=== PATIENT | female | born 1985 | race Asian ===

== ENCOUNTER 2023-04-16 22:58 | Inpatient (IN) ==
[2023-04-16] MEDS ORDERED: oxyCODONE/ACETAMINOPHEN 5mg/325mg TAB PO PRN (23:10)
[2023-04-16] MEDS ORDERED: BUTALBITAL/ACETAMIN/CAFFEINE TAB PO PRN (23:42)
--- NOTE | 2023-04-16 23:46 | History & Physical Report ---
Date of Service April 16, 2023 Assessment & Plan (1) Gestational hypertension: Plan: Patient is a 37-year-old -0-2-0 at 37 weeks and 1 day gestation who was diagnosed with gestational hypertension without proteinuria at the office and was scheduled for induction of labor tomorrow. She presented today with severe headache not responding to Tylenol and elevated blood pressures within severe range, Neurologic exam normal, Blood work including liver enzymes, creatinine and platelets were normal tonight P/C ratio of urine in office was within normal limits yesterday, Discussed the findings with gestational hypertension with superimposed preeclampsia with severe features, recommended her to be admitted today and induction of labor and IV magnesium for seizure prophylaxis and antihypertensives to control blood pressures, Patient is questioning about IV magnesium and she is not sure she will take it or not, she wants time for the Fiorecet she took for Headache to work, I still recommended IV magnesium for seizure prophylaxis due to the findings, patient wants to think about it and then decide, She also wants to hold for vaginal exam and placement of Cervidil for cervical ripening until she feels better, All questions were answered. (2) Gestational diabetes mellitus (GDM): (3) Headache in : History of Present Illness Chief Complaint: Headaches Primary Care Provider: NO PCP Patient is a 37-year-old at 37 weeks of gestation who was originally scheduled for induction of labor on April 28 for gestational hypertension. Her blood work and urine PC ratio were normal yesterday in the office. She started to have neck pain radiating to her ears and temples tonight. She in itially thought it was tension headache that she had before but it got worse. She took 1000 mg of Tylenol at 9 PM and it did not help. She also had blurry vision earlier and it is better now. She denies numbness or tingling, weakness, abdominal, epigastric or right upper quadrant pain, nausea vomiting, contractions, leakage of fluid, vaginal bleeding. She reports good movements. Her has been complicated by, 1. Gestational hypertension without proteinuria, on labetalol 100 mg twice daily, 2. Gestational diabetes, 3. Advanced maternal age, Allergies Allergy/AdvReac Type Severity Reaction Status Date / Time No Known Allergies Allergy Verified 04/08/23 20:59 Home Medications Medication Instructions Recorded Confirmed Type ferrous sulfate 325 mg (65 mg 325 mg PO DAILY 04/03/23 04/08/23 History iron) tablet (iron) vit no.95-ferrous 1 tab PO DAILY 04/03/23 04/08/23 History fumarate 28 mg-folic acid 800 mcg tablet () cetirizine 10 mg tablet (Zyrtec) 10 mg PO DAILY 04/08/23 04/08/23 History Patient History Medical History Decreased movement High risk due to assisted reproductive technology in third trimester No significant past medical history Surgical History No significant past surgical history Social History Smoking Status: Never smoker Second Hand Exposure: No; Hx Alcohol Use: No Hx Substance Use: No Preferred Language: Tajik Communication Ability: Effective 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 Beliefs That Will Affect Care: None marital status: Current Living Situation: Spouse Feels Safe at Home: Yes Safety Concerns: Feels Safe At This Time Assistive Devices: None Review of Systems as per Subjective / HPI Physical Exam Constitutional: WD/WN, vitals as above well developed and well nourished Gastrointestinal (Abdomen): normal bowel sounds, soft, nontender, no hepatosplenomegaly Neurologic: patellar DTR's 2+ bilat, sensation intact and PERRL, EOMI, accommodation nl, no face palsy, no dysarthria normal touch/pain/proprioception, CN's II-XI intact bilaterally, deep tendon reflexes 2+ bilaterally, plantar reflexes intact bilaterally, normal sensation to monofilament and moves all extremities Genitourinary: OB Exam Monitor Tracing: + external uterine monitor used and + category I Results & Data Vital Signs (Past 12 Hours) Vital Signs Temp Pulse Resp BP 04/16/23 23:39 64 167/83 H 04/16/23 23:36 66 169/77 H 04/16/23 23:33 56 L 164/84 H 04/16/23 23:30 36.4 C L 61 18 185/89 H Vital Signs Temp Pulse Resp BP 04/17/23 00:47 59 L 161/80 H 04/17/23 00:28 61 188/87 H 04/17/23 00:18 55 L 142/63 H 04/17/23 00:12 61 183/89 H 04/17/23 00:02 63 172/83 H 04/16/23 23:57 63 201/100 H 04/16/23 23:39 64 167/83 H 04/16/23 23:36 66 169/77 H 04/16/23 23:33 56 L 164/84 H 04/16/23 23:30 36.4 C L 61 18 185/89 H Laboratory Results Lab Results 04/16/23 04/16/23 Range/Units 23:20 23:20 WBC 8.55 (4.8-10.8) K/ul RBC 4.19 L (4.20-5.40) M/uL Hgb 11.7 L (12.0-16.0) g/dl Hct 36.0 L (37.0-47.0) % MCV 85.9 (80.0-100.0) fL MCH 27.9 (25.0-34.0) pg MCHC 32.5 (32.0-36.0) g/dL RDW Std Deviation 45.1 (36.4-46.3) fL RDW Coeff of Aj 14.6 H (11.5-14.5) % Plt Count 148 (130-400) K/uL MPV 13.5 H (9.4-12.4) fL Immature Gran % (Auto) 0.4 % Neut % (Auto) 61.4 % Lymph % (Auto) 29.6 % [place] % (Auto) 7.1 % Eos % (Auto) 1.1 % Baso % (Auto) 0.4 % Neut # (Auto) 5.26 (1.40-6.50) K/uL Lymph # (Auto) 2.53 (1.20-3.40) K/uL [place] # (Auto) 0.61 H (0.11-0.59) K/uL Eos # (Auto) 0.09 (0.00-0.50) K/uL Baso # (Auto) 0.03 (0.00-0.20) K/uL Immature Gran # (Auto) 0.03 (0.01-0.20) K/uL Sodium 134 L (136-145) mmol/L Potassium 4.3 (3.5-5.1) mmol/L Chloride 108 H (98-107) mmol/L Carbon Dioxide 18 L (21-32) mmol/L Anion Gap 8 (3-11) BUN 12 (6-23) mg/dl Creatinine 0.65 (0.6-1.2) mg/dl Est Cr Clr Drug Dosing 125.0 ml/min Est GFR ( Amer) 133.3 ml/min Est GFR (Non-Af Amer) 115.0 ml/min BUN/Creatinine Ratio 18.5 (10-20) Glucose 90 (70-99(Fasting)) mg/dl Calcium 9.0 (8.6-10.3) mg/dl Total Bilirubin 0.2 (0.2-1.0) mg/dl AST 23 (13-39) U/L ALT 12 (7-52) U/L Alkaline Phosphatase 101 (34-104) U/L Total Protein 6.2 (6.0-8.3) gm/dl Albumin 3.2 L (3.4-5.0) gm/dl Globulin 3.0 (2.5-4.0) gm/dl Albumin/Globulin Ratio 1.1 (0.9-2)
[2023-04-16 23:55] LABS: Albumin Globulin Ratio 1.1 (0.9-2); Albumin Level 3.2 gm/dl (3.4-5.0); BUN Creatinine Ratio 18.5 (10-20); Bilirubin,Total 0.2 mg/dl (0.2-1.0); Est GFR (African American) 133.3 ml/min; Potassium 4.3 mmol/L (3.5-5.1); Total Protein 6.2 gm/dl (6.0-8.3)
[2023-04-17 00:01] LABS: Basophils # (auto) 0.03 K/uL (0.00-0.20); Basophils % (auto) 0.4 %; Eosinophils # (auto) 0.09 K/uL (0.00-0.50); Eosinophils % (auto) 1.1 %; Hemoglobin 11.7 g/dl (12.0-16.0); Immature Granulocytes # (auto) 0.03 K/uL (0.01-0.20); Immature Granulocytes % (auto) 0.4 %; Lymphocytes # (auto) 2.53 K/uL (1.20-3.40); Lymphocytes % (auto) 29.6 %; Mean Corpuscular Hemoglobin 27.9 pg (25.0-34.0); Mean Corpuscular Hgb Conc 32.5 g/dL (32.0-36.0); Mean Corpuscular Volume 85.9 fL (80.0-100.0); Mean Platelet Volume 13.5 fL (9.4-12.4); Monocytes # (auto) 0.61 K/uL (0.11-0.59); Monocytes % (auto) 7.1 %; Neutrophils # (auto) 5.26 K/uL (1.40-6.50); Neutrophils % (auto) 61.4 %; Platelet Count 148 K/uL (130-400); RDW Coefficient of Variation 14.6 % (11.5-14.5); RDW Standard Deviation 45.1 fL (36.4-46.3); Red Blood Count 4.19 M/uL (4.20-5.40); White Blood Count 8.55 K/ul (4.8-10.8)
[2023-04-17] MEDS ORDERED: LIDOCAINE 1% LOCAL 20 ML VIAL INFIL PRN (00:05)
[2023-04-17] MEDS ORDERED: OXYTOCIN 30 UNITS/500 ML BAG IV PRN ×3 (00:05→21:07)
[2023-04-17] MEDS ORDERED: DINOPROSTONE 10 MG INSERT PV ONE (00:05)
[2023-04-17] MEDS ORDERED: NIFEdipine 10 MG CAP PO STA (00:05)
[2023-04-17] MEDS ORDERED: MAG SULFATE 4GM BOLUS FROM BAG IV ONE (00:07)
[2023-04-17] MEDS ORDERED: LABETALOL HCL IV 5 MG/ML 20ML IV STA (00:30)
[2023-04-17] MEDS ORDERED: LABETALOL HCL IV 5 MG/ML 20ML IV PRN (01:20)
[2023-04-17] MEDS ORDERED: hydrALAZINE HCL 20 MG/ML VIAL IV PRN ×2 (01:22→01:37)
[2023-04-17] MEDS: LACTATED RINGER'S 1,000 ML IV PRN ×3 (01:25→16:05)
--- NOTE | 2023-04-17 01:27 | Obstetrical Progress Note ---
Date of Service April 17, 2023 Assessment & Plan Admission and Anticipated Discharge Date Admission Date: April 17, 2023 Subjective Patient is reevaluated. She feels better since she came. She agrees with IV magnesium and Cervidil now. VE; cervix 1 cm/ thick/ posterior, head at -1, cervidil is placed FHR categ I Continue to monitor closely. Repeat Labs in am All questions were answered. Results & Data Vital Signs (Past 12 Hours) Vital Signs Temp Pulse Resp BP 04/17/23 01:09 58 L 158/83 H 04/17/23 01:09 58 L 158/83 H 04/17/23 00:57 57 L 171/85 H 04/17/23 00:47 59 L 161/80 H 04/17/23 00:28 61 188/87 H 04/17/23 00:18 55 L 142/63 H 04/17/23 00:12 61 183/89 H 04/17/23 00:02 63 172/83 H 04/16/23 23:57 63 201/100 H 04/16/23 23:39 64 167/83 H 04/16/23 23:36 66 169/77 H 04/16/23 23:33 56 L 164/84 H 04/16/23 23:30 36.4 C L 61 18 185/89 H
[2023-04-17] MEDS: MAGNESIUM SULFATE / WTR 40 GM/1,000 ML BAG IV SCH ×2 (01:55→20:25)
[2023-04-17 01:56] LABS: Appearance Urine Clear (Clear); Bilirubin Urine Negative (Negative); Blood Urine Negative (Negative); Color Urine Yellow; Glucose Urine UA Negative (Negative); Ketones Urine Negative (Negative); Leukocyte Esterase Urine Negative (Negative); Nitrite Urine Negative (Negative); Protein Urine Negative (Negative); Urobilinogen Urine Negative (Negative); pH Urine 6.5 (4.5-7.5)
[2023-04-17 02:08] LABS: Total Protein Urine Random 10.5 mg/dl (0-11.9)
[2023-04-17 02:13] LABS: Creatinine Urine Random 66.7 mg/dl; Protein Creatinine Ratio Urine 0.2 (0-0.2)
[2023-04-17] MEDS: ACETAMINOPHEN 325 MG TAB PO PRN (06:33)
[2023-04-17] MEDS ORDERED: LABETALOL HCL 200 MG TAB PO SCH ×2 (07:15→09:00)
[2023-04-17] MEDS ORDERED: Nursing to Pharmacy Communication SCH (07:15)
[2023-04-17] MEDS ORDERED: BUTALBITAL/ACETAMIN/CAFFEINE TAB PO STA (08:31)
[2023-04-17] MEDS ORDERED: LIDOCAINE 2% JELLY 5 ML TUBE EXT ONE (08:36)
--- NOTE | 2023-04-17 08:37 | Obstetrical Progress Note ---
Date of Service April 17, 2023 Assessment & Plan Admission and Anticipated Discharge Date Admission Date: April 17, 2023 Subjective Late entry from 08: 40 Patient started to have العلي again around 6 am. She could sleep after she took Fioricet last night but woke up this morning with العلي. It started again from back of neck and radiated to temples like before. She took Tylenol but did not help much. Pain is 6-7/10. She has been feeling ctxs every 4 minutes since 6 am too. They are not as painful, 4-5/10. BP's started to increase after with العلي starting. Took PO Labetalol about half an hour ago. No change in vision/ epig or RUQ pain/ CP/ SOB Plan to repeat the dose of Fioricet insert lee and check her cervix. Vital Signs Temp Pulse Resp BP Pulse Ox 04/17/23 08:15 20 04/17/23 07:15 20 04/17/23 08:28 69 183/103 H 04/17/23 01:09 58 L 158/83 H 04/17/23 08:33 72 97 04/17/23 08:32 70 161/101 H 04/17/23 08:28 72 98 04/17/23 08:27 69 183/103 H 04/17/23 08:23 72 97 04/17/23 08:18 73 98 04/17/23 08:13 71 98 04/17/23 08:08 69 98 04/17/23 08:03 66 97 04/17/23 07:58 66 98 04/17/23 07:56 65 165/92 H 04/17/23 07:55 68 91 04/17/23 07:53 69 96 04/17/23 07:48 64 96 04/17/23 07:49 66 94 04/17/23 07:43 68 97 04/17/23 07:38 70 97 04/17/23 07:33 67 97 04/17/23 07:28 69 97 04/17/23 07:26 61 166/87 H 04/17/23 07:25 65 91 04/17/23 07:23 69 97 04/17/23 07:18 73 97 04/17/23 07:12 69 98 04/17/23 07:07 66 96 04/17/23 07:02 65 97 04/17/23 06:57 68 98 04/17/23 06:56 64 150/94 H 94 04/17/23 06:52 71 98 04/17/23 06:47 71 98 04/17/23 06:00 18 04/17/23 06:00 18 04/17/23 06:42 69 97 04/17/23 06:37 70 98 04/17/23 06:38 69 155/86 H 04/17/23 06:32 66 98 04/17/23 06:27 65 97 04/17/23 06:26 69 168/85 H 04/17/23 06:25 70 91 04/17/23 06:22 64 97 04/17/23 06:17 71 99 04/17/23 06:12 72 99 04/17/23 06:07 68 98 04/17/23 06:02 69 98 04/17/23 05:57 97 04/17/23 05:57 64 04/17/23 05:57 68 152/82 H 04/17/23 05:55 72 92 04/17/23 05:52 62 97 04/17/23 05:47 67 97 04/17/23 05:42 65 96 04/17/23 05:37 61 96 04/17/23 05:00 16 04/17/23 05:00 16 04/17/23 05:32 63 97 04/17/23 04:00 18 04/17/23 04:00 18 04/17/23 05:27 96 04/17/23 05:27 61 04/17/23 05:26 69 92 04/17/23 05:27 67 154/88 H 04/17/23 05:22 62 97 04/17/23 05:17 65 97 04/17/23 05:12 68 96 04/17/23 05:07 68 96 04/17/23 05:02 66 96 04/17/23 04:57 71 96 04/17/23 04:56 64 134/80 88 L 04/17/23 04:52 64 98 04/17/23 04:47 72 97 04/17/23 04:36 77 98 04/17/23 04:31 68 98 04/17/23 04:26 74 98 04/17/23 04:27 67 133/82 93 04/17/23 04:21 74 100 04/17/23 04:16 67 96 04/17/23 04:11 62 96 04/17/23 04:09 67 94 04/17/23 04:06 67 97 04/17/23 04:01 63 96 04/17/23 03:56 97 04/17/23 03:56 58 L 04/17/23 03:55 66 16 91 04/17/23 03:56 66 132/75 04/17/23 03:25 16 04/17/23 03:25 16 04/17/23 03:51 66 95 04/17/23 03:50 71 94 04/17/23 03:46 62 96 04/17/23 03:41 61 95 04/17/23 03:40 66 94 04/17/23 03:36 62 96 04/17/23 03:31 60 97 04/17/23 03:26 65 151/78 H 92 04/17/23 03:21 69 94 04/17/23 03:16 67 98 04/17/23 03:11 63 96 04/17/23 03:06 66 97 04/17/23 03:01 68 96 04/17/23 02:56 66 121/73 96 04/17/23 02:55 64 18 92 04/17/23 02:51 65 95 04/17/23 02:49 72 94 04/17/23 02:46 68 96 04/17/23 02:41 73 96 04/17/23 02:39 73 94 04/17/23 02:36 73 96 04/17/23 02:31 73 95 04/17/23 02:26 71 99 04/17/23 02:25 36.5 C 68 18 123/75 91 04/17/23 02:21 72 98 04/17/23 02:12 73 97 04/17/23 02:11 68 18 118/69 92 04/17/23 02:07 69 96 04/17/23 02:05 76 94 04/17/23 02:02 70 97 04/17/23 01:57 73 98 04/17/23 01:56 68 16 120/70 92 04/17/23 01:52 76 97 04/17/23 01:47 74 98 04/17/23 01:42 73 97 04/17/23 01:41 71 18 119/69 91 04/17/23 01:37 76 97 04/17/23 01:32 76 97 04/17/23 01:26 75 16 126/74 04/17/23 01:09 58 L 158/83 H 04/17/23 00:57 57 L 171/85 H 04/17/23 00:47 59 L 161/80 H 04/17/23 00:28 61 188/87 H 04/17/23 00:18 55 L 142/63 H 04/17/23 00:12 61 183/89 H 04/17/23 00:02 63 172/83 H 04/16/23 23:57 63 201/100 H 04/16/23 23:39 64 167/83 H 04/16/23 23:36 66 169/77 H 04/16/23 23:33 56 L 164/84 H 04/16/23 23:30 36.4 C L 61 18 185/89 H Results & Data Vital Signs (Past 12 Hours) Vital Signs Temp Pulse Resp BP Pulse Ox 04/17/23 08:15 20 04/17/23 07:15 20 04/17/23 08:28 69 183/103 H 04/17/23 01:09 58 L 158/83 H 04/17/23 08:32 70 161/101 H 04/17/23 08:28 72 98 04/17/23 08:27 69 183/103 H 04/17/23 08:23 72 97 04/17/23 08:18 73 98 04/17/23 08:13 71 98 04/17/23 08:08 69 98 04/17/23 08:03 66 97 04/17/23 07:58 66 98 04/17/23 07:56 65 165/92 H 04/17/23 07:55 68 91 04/17/23 07:53 69 96 04/17/23 07:48 64 96 04/17/23 07:49 66 94 04/17/23 07:43 68 97 04/17/23 07:38 70 97 04/17/23 07:33 67 97 04/17/23 07:28 69 97 04/17/23 07:26 61 166/87 H 04/17/23 07:25 65 91 04/17/23 07:23 69 97 04/17/23 07:18 73 97 04/17/23 07:12 69 98 04/17/23 07:07 66 96 04/17/23 07:02 65 97 04/17/23 06:57 68 98 04/17/23 06:56 64 150/94 H 94 04/17/23 06:52 71 98 04/17/23 06:47 71 98 04/17/23 06:00 18 04/17/23 06:00 18 04/17/23 06:42 69 97 04/17/23 06:37 70 98 04/17/23 06:38 69 155/86 H 04/17/23 06:32 66 98 04/17/23 06:27 65 97 04/17/23 06:26 69 168/85 H 04/17/23 06:25 70 91 04/17/23 06:22 64 97 04/17/23 06:17 71 99 04/17/23 06:12 72 99 04/17/23 06:07 68 98 04/17/23 06:02 69 98 04/17/23 05:57 97 04/17/23 05:57 64 04/17/23 05:57 68 152/82 H 04/17/23 05:55 72 92 04/17/23 05:52 62 97 04/17/23 05:47 67 97 04/17/23 05:42 65 96 04/17/23 05:37 61 96 04/17/23 05:00 16 04/17/23 05:00 16 04/17/23 05:32 63 97 04/17/23 04:00 18 04/17/23 04:00 18 04/17/23 05:27 96 04/17/23 05:27 61 04/17/23 05:26 69 92 04/17/23 05:27 67 154/88 H 04/17/23 05:22 62 97 04/17/23 05:17 65 97 04/17/23 05:12 68 96 04/17/23 05:07 68 96 04/17/23 05:02 66 96 04/17/23 04:57 71 96 04/17/23 04:56 64 134/80 88 L 04/17/23 04:52 64 98 04/17/23 04:47 72 97 04/17/23 04:36 77 98 04/17/23 04:31 68 98 04/17/23 04:26 74 98 04/17/23 04:27 67 133/82 93 04/17/23 04:21 74 100 04/17/23 04:16 67 96 04/17/23 04:11 62 96 04/17/23 04:09 67 94 04/17/23 04:06 67 97 04/17/23 04:01 63 96 04/17/23 03:56 97 04/17/23 03:56 58 L 04/17/23 03:55 66 16 91 04/17/23 03:56 66 132/75 04/17/23 03:25 16 04/17/23 03:25 16 04/17/23 03:51 66 95 04/17/23 03:50 71 94 04/17/23 03:46 62 96 04/17/23 03:41 61 95 04/17/23 03:40 66 94 04/17/23 03:36 62 96 04/17/23 03:31 60 97 04/17/23 03:26 65 151/78 H 92 04/17/23 03:21 69 94 04/17/23 03:16 67 98 04/17/23 03:11 63 96 04/17/23 03:06 66 97 04/17/23 03:01 68 96 04/17/23 02:56 66 121/73 96 04/17/23 02:55 64 18 92 04/17/23 02:51 65 95 04/17/23 02:49 72 94 04/17/23 02:46 68 96 04/17/23 02:41 73 96 04/17/23 02:39 73 94 04/17/23 02:36 73 96 04/17/23 02:31 73 95 04/17/23 02:26 71 99 04/17/23 02:25 36.5 C 68 18 123/75 91 04/17/23 02:21 72 98 04/17/23 02:12 73 97 04/17/23 02:11 68 18 118/69 92 04/17/23 02:07 69 96 04/17/23 02:05 76 94 04/17/23 02:02 70 97 04/17/23 01:57 73 98 04/17/23 01:56 68 16 120/70 92 04/17/23 01:52 76 97 04/17/23 01:47 74 98 04/17/23 01:42 73 97 04/17/23 01:41 71 18 119/69 91 04/17/23 01:37 76 97 04/17/23 01:32 76 97 04/17/23 01:26 75 16 126/74 04/17/23 01:09 58 L 158/83 H 04/17/23 00:57 57 L 171/85 H 04/17/23 00:47 59 L 161/80 H 04/17/23 00:28 61 188/87 H 04/17/23 00:18 55 L 142/63 H 04/17/23 00:12 61 183/89 H 04/17/23 00:02 63 172/83 H 04/16/23 23:57 63 201/100 H 04/16/23 23:39 64 167/83 H 04/16/23 23:36 66 169/77 H 04/16/23 23:33 56 L 164/84 H 04/16/23 23:30 36.4 C L 61 18 185/89 H
[2023-04-17] MEDS ORDERED: NIFEdipine EXTENDED REL 30 MG TABCR PO SCH (09:00)
--- NOTE | 2023-04-17 09:13 | Obstetrical Progress Note ---
Date of Service April 17, 2023 Assessment & Plan Admission and Anticipated Discharge Date Admission Date: April 17, 2023 Subjective I went to check her again, her nurse stated she took IV Labetalol and Fiorecet and her BP came down and her العلي is better. She wants to sleep and does not want VE now. Guallpa was inserted with Lidocaine gel. Drained 1000 ml urine. Continue to monitor closely, recheck to remove Cervidil. Results & Data Vital Signs (Past 12 Hours) Vital Signs Temp Pulse Resp BP Pulse Ox 04/17/23 08:52 67 151/92 H 04/17/23 08:15 20 04/17/23 07:15 20 04/17/23 08:28 69 183/103 H 04/17/23 01:09 58 L 158/83 H 04/17/23 09:08 70 96 04/17/23 09:06 70 132/86 91 04/17/23 09:03 72 97 04/17/23 09:02 70 140/89 04/17/23 08:58 67 97 04/17/23 08:57 68 163/88 H 91 04/17/23 08:53 67 97 04/17/23 08:51 71 04/17/23 08:51 67 151/93 H 92 04/17/23 08:48 67 99 04/17/23 08:46 67 151/92 H 04/17/23 08:43 96 04/17/23 08:43 72 04/17/23 08:42 69 93 04/17/23 08:43 75 149/91 H 04/17/23 08:38 71 97 04/17/23 08:36 70 93 04/17/23 08:37 68 155/93 H 04/17/23 08:33 72 97 04/17/23 08:32 70 161/101 H 04/17/23 08:28 72 98 04/17/23 08:27 69 183/103 H 04/17/23 08:23 72 97 04/17/23 08:18 73 98 04/17/23 08:13 71 98 04/17/23 08:08 69 98 04/17/23 08:03 66 97 04/17/23 07:58 66 98 04/17/23 07:56 65 165/92 H 04/17/23 07:55 68 91 04/17/23 07:53 69 96 04/17/23 07:48 64 96 04/17/23 07:49 66 94 04/17/23 07:43 68 97 04/17/23 07:38 70 97 04/17/23 07:33 67 97 04/17/23 07:28 69 97 04/17/23 07:26 61 166/87 H 04/17/23 07:25 65 91 04/17/23 07:23 69 97 04/17/23 07:18 73 97 04/17/23 07:12 69 98 04/17/23 07:07 66 96 04/17/23 07:02 65 97 04/17/23 06:57 68 98 04/17/23 06:56 64 150/94 H 94 04/17/23 06:52 71 98 04/17/23 06:47 71 98 04/17/23 06:00 18 04/17/23 06:00 18 04/17/23 06:42 69 97 04/17/23 06:37 70 98 04/17/23 06:38 69 155/86 H 04/17/23 06:32 66 98 04/17/23 06:27 65 97 04/17/23 06:26 69 168/85 H 04/17/23 06:25 70 91 04/17/23 06:22 64 97 04/17/23 06:17 71 99 04/17/23 06:12 72 99 04/17/23 06:07 68 98 04/17/23 06:02 69 98 04/17/23 05:57 97 04/17/23 05:57 64 04/17/23 05:57 68 152/82 H 04/17/23 05:55 72 92 04/17/23 05:52 62 97 04/17/23 05:47 67 97 04/17/23 05:42 65 96 04/17/23 05:37 61 96 04/17/23 05:00 16 04/17/23 05:00 16 04/17/23 05:32 63 97 04/17/23 04:00 18 04/17/23 04:00 18 04/17/23 05:27 96 04/17/23 05:27 61 04/17/23 05:26 69 92 04/17/23 05:27 67 154/88 H 04/17/23 05:22 62 97 04/17/23 05:17 65 97 04/17/23 05:12 68 96 04/17/23 05:07 68 96 04/17/23 05:02 66 96 04/17/23 04:57 71 96 04/17/23 04:56 64 134/80 88 L 04/17/23 04:52 64 98 04/17/23 04:47 72 97 04/17/23 04:36 77 98 04/17/23 04:31 68 98 04/17/23 04:26 74 98 04/17/23 04:27 67 133/82 93 04/17/23 04:21 74 100 04/17/23 04:16 67 96 04/17/23 04:11 62 96 04/17/23 04:09 67 94 04/17/23 04:06 67 97 04/17/23 04:01 63 96 04/17/23 03:56 97 04/17/23 03:56 58 L 04/17/23 03:55 66 16 91 04/17/23 03:56 66 132/75 04/17/23 03:25 16 04/17/23 03:25 16 04/17/23 03:51 66 95 04/17/23 03:50 71 94 04/17/23 03:46 62 96 04/17/23 03:41 61 95 04/17/23 03:40 66 94 04/17/23 03:36 62 96 04/17/23 03:31 60 97 04/17/23 03:26 65 151/78 H 92 04/17/23 03:21 69 94 04/17/23 03:16 67 98 04/17/23 03:11 63 96 04/17/23 03:06 66 97 04/17/23 03:01 68 96 04/17/23 02:56 66 121/73 96 04/17/23 02:55 64 18 92 04/17/23 02:51 65 95 04/17/23 02:49 72 94 04/17/23 02:46 68 96 04/17/23 02:41 73 96 04/17/23 02:39 73 94 04/17/23 02:36 73 96 04/17/23 02:31 73 95 04/17/23 02:26 71 99 04/17/23 02:25 36.5 C 68 18 123/75 91 04/17/23 02:21 72 98 04/17/23 02:12 73 97 04/17/23 02:11 68 18 118/69 92 04/17/23 02:07 69 96 04/17/23 02:05 76 94 04/17/23 02:02 70 97 04/17/23 01:57 73 98 04/17/23 01:56 68 16 120/70 92 04/17/23 01:52 76 97 04/17/23 01:47 74 98 04/17/23 01:42 73 97 04/17/23 01:41 71 18 119/69 91 04/17/23 01:37 76 97 04/17/23 01:32 76 97 04/17/23 01:26 75 16 126/74 04/17/23 01:09 58 L 158/83 H 04/17/23 00:57 57 L 171/85 H 04/17/23 00:47 59 L 161/80 H 04/17/23 00:28 61 188/87 H 04/17/23 00:18 55 L 142/63 H 04/17/23 00:12 61 183/89 H 04/17/23 00:02 63 172/83 H 04/16/23 23:57 63 201/100 H 04/16/23 23:39 64 167/83 H 04/16/23 23:36 66 169/77 H 04/16/23 23:33 56 L 164/84 H 04/16/23 23:30 36.4 C L 61 18 185/89 H
[2023-04-17 10:15] LABS: Basophils # (auto) 0.03 K/uL (0.00-0.20); Basophils % (auto) 0.4 %; Eosinophils # (auto) 0.06 K/uL (0.00-0.50); Eosinophils % (auto) 0.8 %; Hematocrit (blood only) 38.4 % (37.0-47.0); Hemoglobin 12.3 g/dl (12.0-16.0); Immature Granulocytes # (auto) 0.04 K/uL (0.01-0.20); Immature Granulocytes % (auto) 0.5 %; Lymphocytes # (auto) 1.71 K/uL (1.20-3.40); Lymphocytes % (auto) 23.4 %; Mean Corpuscular Hemoglobin 27.9 pg (25.0-34.0); Mean Corpuscular Volume 87.1 fL (80.0-100.0); Mean Platelet Volume 13.6 fL (9.4-12.4); Monocytes # (auto) 0.36 K/uL (0.11-0.59); Monocytes % (auto) 4.9 %; Platelet Count 141 K/uL (130-400); RDW Coefficient of Variation 14.5 % (11.5-14.5); RDW Standard Deviation 45.8 fL (36.4-46.3); Red Blood Count 4.41 M/uL (4.20-5.40)
[2023-04-17 10:38] LABS: BUN Creatinine Ratio 15.3 (10-20); Calcium 8.2 mg/dl (8.6-10.3); Creatinine Clr Calc Pharmacy 112.9 ml/min; Est GFR (African American) 125.8 ml/min; Est GFR (Non-African American) 108.5 ml/min; Potassium 3.9 mmol/L (3.5-5.1)
[2023-04-17 10:53] LABS: Albumin Level 3.3 gm/dl (3.4-5.0); Bilirubin,Total 0.3 mg/dl (0.2-1.0); Globulin 3.2 gm/dl (2.5-4.0); Total Protein 6.5 gm/dl (6.0-8.3)
[2023-04-17] MEDS ORDERED: BUTALBITAL/ACETAMIN/CAFFEINE TAB PO PRN (12:48)
[2023-04-17] MEDS: LABETALOL HCL 200 MG TAB PO SCH ×2 (13:04→20:35)
--- NOTE | 2023-04-17 13:21 | Obstetrical Progress Note ---
Date of Service April 17, 2023 Assessment & Plan Admission and Anticipated Discharge Date Admission Date: April 17, 2023 Subjective I spoke with MFM on-call at [facility] discussed the case in details. They recommended increase the dose of labetalol to 200mg 3 times daily, add hydralazine if needed. They recommend trial of labor as long as she responds to Fioricet with her headaches. They recommend urgent delivery with change in neurological exam or persistent unrelenting headache not responding to medications or she was going to help syndrome. They recommended epidural early to help to control pain and blood pressures and be aggressive with induction of labor. 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 She feels much better, she took a nap in the morning and has no headache right now. She denies change in her vision, nausea vomiting, epigastric or right upper quadrant pain. Her labs are stable creatinine is slightly higher than before at 0.72, it was around 0.6 ALT AST normal. Mag level is 6 mg/dL. It is time to remove the Cervidil. Patient has hard time with vaginal exams. Cervidil is removed without difficulty. Cervix is still posterior 1 cm, 30% effaced head at -2 station, no change since last night. heart rate with a baseline of 130s to 140s with minimal to moderate variability, no decelerations. There were 10 x10 accelerations earlier. I was not able to apply scalp stimulation due to patient discomfort. Discussed the findings with her and recommended to start oxytocin and epidural for pain and then Guallpa balloon insertion for mechanical dilatation. Patient is nervous and emotional, she wants to think about it. Continue to monitor closely. Results & Data Vital Signs (Past 12 Hours) Vital Signs Temp Pulse Resp BP Pulse Ox 04/17/23 12:15 18 04/17/23 11:15 18 04/17/23 10:15 20 04/17/23 09:15 20 04/17/23 08:52 67 151/92 H 04/17/23 08:15 20 04/17/23 07:15 20 04/17/23 08:28 69 183/103 H 04/17/23 13:13 78 95 04/17/23 13:08 70 97 04/17/23 13:03 71 98 04/17/23 12:58 69 99 04/17/23 12:53 68 97 04/17/23 12:48 73 97 04/17/23 12:45 68 156/90 H 94 04/17/23 12:43 72 98 04/17/23 12:38 76 98 04/17/23 12:33 73 98 04/17/23 12:28 69 97 04/17/23 12:23 72 97 04/17/23 12:18 69 98 04/17/23 12:13 74 99 04/17/23 12:08 73 98 04/17/23 12:07 66 151/93 H 04/17/23 12:03 68 97 04/17/23 11:58 70 97 04/17/23 11:53 97 04/17/23 11:53 65 04/17/23 11:53 63 154/87 H 04/17/23 11:48 68 97 04/17/23 11:43 66 97 04/17/23 11:38 72 98 04/17/23 11:37 65 143/91 H 04/17/23 11:33 72 97 04/17/23 11:28 71 97 04/17/23 11:23 66 97 04/17/23 11:22 66 138/90 04/17/23 11:18 73 98 04/17/23 10:52 20 04/17/23 10:52 36.4 C L 20 04/17/23 11:13 70 97 04/17/23 11:08 97 04/17/23 11:08 67 04/17/23 11:08 71 164/89 H 92 04/17/23 11:03 67 96 04/17/23 10:58 64 96 04/17/23 10:53 65 96 04/17/23 10:52 66 04/17/23 10:52 71 158/85 H 91 04/17/23 10:48 66 96 04/17/23 10:43 66 97 04/17/23 10:38 73 97 04/17/23 10:37 68 20 133/86 93 04/17/23 10:33 76 97 04/17/23 10:28 73 95 04/17/23 10:29 77 94 04/17/23 10:23 75 96 04/17/23 10:22 67 137/88 93 04/17/23 10:18 77 99 04/17/23 10:13 75 97 04/17/23 10:08 71 98 04/17/23 10:07 71 148/96 H 93 04/17/23 10:03 70 97 04/17/23 09:58 72 96 04/17/23 09:53 73 97 04/17/23 09:52 70 136/91 04/17/23 09:48 69 98 04/17/23 09:43 68 97 04/17/23 09:38 70 98 04/17/23 09:37 74 142/94 H 92 04/17/23 09:33 72 98 04/17/23 09:28 71 98 04/17/23 09:23 73 97 04/17/23 09:22 70 138/87 04/17/23 09:18 74 98 04/17/23 09:13 66 96 04/17/23 09:08 70 96 04/17/23 09:06 70 132/86 91 04/17/23 09:03 72 97 04/17/23 09:02 70 140/89 04/17/23 08:58 67 97 04/17/23 08:57 68 163/88 H 91 04/17/23 08:53 67 97 04/17/23 08:51 71 04/17/23 08:51 67 151/93 H 92 04/17/23 08:48 67 99 04/17/23 08:46 67 151/92 H 04/17/23 08:43 96 04/17/23 08:43 72 04/17/23 08:42 69 93 04/17/23 08:43 75 149/91 H 04/17/23 08:38 71 97 04/17/23 08:36 70 93 04/17/23 08:37 68 155/93 H 04/17/23 08:33 72 97 04/17/23 08:32 70 161/101 H 04/17/23 08:28 72 98 04/17/23 08:27 69 183/103 H 04/17/23 08:23 72 97 04/17/23 08:18 73 98 04/17/23 08:13 71 98 04/17/23 08:08 69 98 04/17/23 08:03 66 97 04/17/23 07:58 66 98 04/17/23 07:56 65 165/92 H 04/17/23 07:55 68 91 04/17/23 07:53 69 96 04/17/23 07:48 64 96 04/17/23 07:49 66 94 04/17/23 07:43 68 97 04/17/23 07:38 70 97 04/17/23 07:33 67 97 04/17/23 07:28 69 97 04/17/23 07:26 61 166/87 H 04/17/23 07:25 65 91 04/17/23 07:23 69 97 04/17/23 07:18 73 97 04/17/23 07:12 69 98 04/17/23 07:07 66 96 04/17/23 07:02 65 97 04/17/23 06:57 68 98 04/17/23 06:56 64 150/94 H 94 04/17/23 06:52 71 98 04/17/23 06:47 71 98 04/17/23 06:00 18 04/17/23 06:00 18 04/17/23 06:42 69 97 04/17/23 06:37 70 98 04/17/23 06:38 69 155/86 H 04/17/23 06:32 66 98 04/17/23 06:27 65 97 04/17/23 06:26 69 168/85 H 04/17/23 06:25 70 91 04/17/23 06:22 64 97 04/17/23 06:17 71 99 04/17/23 06:12 72 99 04/17/23 06:07 68 98 04/17/23 06:02 69 98 04/17/23 05:57 97 04/17/23 05:57 64 04/17/23 05:57 68 152/82 H 04/17/23 05:55 72 92 04/17/23 05:52 62 97 04/17/23 05:47 67 97 04/17/23 05:42 65 96 04/17/23 05:37 61 96 04/17/23 05:00 16 04/17/23 05:00 16 04/17/23 05:32 63 97 04/17/23 04:00 18 04/17/23 04:00 18 04/17/23 05:27 96 04/17/23 05:27 61 04/17/23 05:26 69 92 04/17/23 05:27 67 154/88 H 04/17/23 05:22 62 97 04/17/23 05:17 65 97 04/17/23 05:12 68 96 04/17/23 05:07 68 96 04/17/23 05:02 66 96 04/17/23 04:57 71 96 04/17/23 04:56 64 134/80 88 L 04/17/23 04:52 64 98 04/17/23 04:47 72 97 04/17/23 04:36 77 98 04/17/23 04:31 68 98 04/17/23 04:26 74 98 04/17/23 04:27 67 133/82 93 04/17/23 04:21 74 100 04/17/23 04:16 67 96 04/17/23 04:11 62 96 04/17/23 04:09 67 94 04/17/23 04:06 67 97 04/17/23 04:01 63 96 04/17/23 03:56 97 04/17/23 03:56 58 L 04/17/23 03:55 66 16 91 04/17/23 03:56 66 132/75 04/17/23 03:25 16 04/17/23 03:25 16 04/17/23 03:51 66 95 04/17/23 03:50 71 94 04/17/23 03:46 62 96 04/17/23 03:41 61 95 04/17/23 03:40 66 94 04/17/23 03:36 62 96 04/17/23 03:31 60 97 04/17/23 03:26 65 151/78 H 92 04/17/23 03:21 69 94 04/17/23 03:16 67 98 04/17/23 03:11 63 96 04/17/23 03:06 66 97 04/17/23 03:01 68 96 04/17/23 02:56 66 121/73 96 04/17/23 02:55 64 18 92 04/17/23 02:51 65 95 04/17/23 02:49 72 94 04/17/23 02:46 68 96 04/17/23 02:41 73 96 04/17/23 02:39 73 94 04/17/23 02:36 73 96 04/17/23 02:31 73 95 04/17/23 02:26 71 99 04/17/23 02:25 36.5 C 68 18 123/75 91 04/17/23 02:21 72 98 04/17/23 02:12 73 97 04/17/23 02:11 68 18 118/69 92 04/17/23 02:07 69 96 04/17/23 02:05 76 94 04/17/23 02:02 70 97 04/17/23 01:57 73 98 04/17/23 01:56 68 16 120/70 92 04/17/23 01:52 76 97 04/17/23 01:47 74 98 04/17/23 01:42 73 97 04/17/23 01:41 71 18 119/69 91 04/17/23 01:37 76 97 04/17/23 01:32 76 97 04/17/23 01:26 75 16 126/74
[2023-04-17] MEDS ORDERED: fentaNYL citrate PF 100 MCG/2 ML VIAL ONE (13:42)
[2023-04-17] MEDS ORDERED: SODIUM CHLORIDE 0.9% PF INJ 10 ML VIAL ONE (13:42)
[2023-04-17] MEDS ORDERED: ePHEDrine sulfate 50 MG/ML AMP ONE (13:42)
[2023-04-17] MEDS ORDERED: BUPIVACAINE 0.25% PF 30 ML VIAL ONE (13:43)
[2023-04-17] MEDS ORDERED: fentaNYL 2MCG/ML ROPIVACAINE 1.25MG/ML 100 ML BAG EPI ONE (13:43)
[2023-04-17] MEDS ORDERED: LIDOCAINE 2%/EPINEPHRINE 1:200,000 20 ML PF ONE (13:43)
--- NOTE | 2023-04-17 13:53 | Anesthesiology Consultation ---
Date of Service April 17, 2023 Assessment & Plan Chart Review Chart Review: Acceptable Risk for Labor Epidural Consults Requested none ASA ASA3 Proposed Anesthesia Anesthesia Type: Labor Epidural Risk / Benefits Reviewed With: PT / POA / Parent / Guardian, Accepts Plan and Informed Consent Obtained History Height/Weight Height: 5 ft 3 in Weight: 85.275 kg Allergies Allergy/AdvReac Type Severity Reaction Status Date / Time No Known Allergies Allergy Verified 04/17/23 01:57 Medications Home Medications Medication Instructions Recorded Confirmed Last Taken ferrous sulfate 325 mg (65 mg 325 mg PO DAILY 04/03/23 04/17/23 04/16/23 iron) tablet (iron) vit no.95-ferrous 1 tab PO DAILY 04/03/23 04/17/23 04/16/23 fumarate 28 mg-folic acid 800 mcg tablet () cetirizine 10 mg tablet (Zyrtec) 10 mg PO DAILY 04/08/23 04/17/23 04/16/23 labetalol 200 mg tablet 200 mg PO BID 04/17/23 04/17/23 04/16/23 20:00 Active Medications Generic Name Dose Route Start Last Admin Trade Name Freq PRN Reason Stop Dose Admin Acetaminophen 650 mg 04/17/23 06:02 04/17/23 06:33 Acetaminophen 325 Mg Tab PO 05/17/23 06:01 650 mg Q4H PRN Administration Pain Lactated Ringer's 1,000 mls @ 125 mls/hr 04/17/23 00:05 04/17/23 13:40 Lr IV 04/19/23 00:04 999 mls/hr .Q8H PRN Infusion L&D Protocol Protocol Magnesium Sulfate 40 gm in 1,000 mls @ 37.5 mls/hr 04/17/23 00:15 04/17/23 13:00 Magnesium Sulfate / Wtr IV 05/17/23 00:14 1.5 gm/hr .Q24H RICHARD 37.5 mls/hr Infusion 1.5 GM/HR Labetalol HCl 20 mg 04/17/23 01:20 04/17/23 08:28 Labetalol Hcl Iv 5 Mg/Ml 20ml IV 05/17/23 01:19 20 mg Q1H PRN Administration Blood Pressure - High Labetalol HCl 200 mg 04/17/23 13:00 04/17/23 13:04 Labetalol Hcl 200 Mg Tab PO 05/17/23 12:59 200 mg TID RICHARD Administration Past Medical History Medical History Decreased movement High risk due to assisted reproductive technology in third trimester No significant past medical history Vaginismus Exercise / Class Metabolic Activity II 4-5 Yardwork/Stairs/Walk up hill Past Surgical History Surgical History No significant past surgical history Past Anesthesia History No Hx of Anesthesia Complications and No Family Hx of Anesthesia Complications History of PONV No Hx of PONV and No Hx of Motion Sickness Social History Smoking Status: Never smoker Hx Alcohol Use: No Hx Substance Use: No substance use type: does not use Physical Exam Vital Signs Last Vital Signs Temp 97.5 F L 04/17/23 10:52 Pulse 70 04/17/23 13:48 Resp 18 04/17/23 12:15 BP 141/91 H 04/17/23 13:45 Pulse Ox 98 04/17/23 13:48 ENMT Mouth: no dentition abnormality Thyromental Distance: > or= 3.5 Finger Breadths Mallampati Class: II Neck normal visual inspection Respiratory normal respiratory effort Auscultation: lungs clear to auscultation bilaterally Cardiovascular Rate/Rhythm: regular rate and regular rhythm Testing Laboratory Results 04/17/23 09:44 04/17/23 09:44 Urine Color Yellow 04/17/23 01:16 Urine Appearance Clear (Clear) 04/17/23 01:16 Urine pH 6.5 (4.5-7.5) 04/17/23 01:16 Ur Specific [place] 1.010 (1.000-1.030) 04/17/23 01:16 Urine Protein Negative (Negative) 04/17/23 01:16 Urine Glucose (UA) Negative (Negative) 04/17/23 01:16 Urine Ketones Negative (Negative) 04/17/23 01:16 Urine Nitrite Negative (Negative) 04/17/23 01:16 Ur Leukocyte Esterase Negative (Negative) 04/17/23 01:16
[2023-04-17] MEDS ORDERED: SODIUM CHLORIDE 0.9% PF INJ 10 ML VIAL EPI PRN (14:12)
[2023-04-17] MEDS ORDERED: fentaNYL citrate PF 100 MCG/2 ML VIAL EPI STA (14:12)
[2023-04-17] MEDS ORDERED: NALOXONE HCL 1 MG in SODIUM CHLORIDE 0.9% 1,000 ML IV PRN (14:12)
[2023-04-17] MEDS ORDERED: NALBUPHINE HCL INJ 10 MG/ML AMP IV PRN (14:12)
[2023-04-17] MEDS ORDERED: ePHEDrine sulfate 50 MG/ML AMP IV PRN (14:12)
[2023-04-17] MEDS ORDERED: diphenhydrAMINE 50 MG/ML VIAL IV PRN (14:12)
[2023-04-17] MEDS ORDERED: BUPIVACAINE 0.25% PF 30 ML VIAL EPI STA (14:12)
[2023-04-17] MEDS ORDERED: LIDOCAINE 2%/EPINEPHRINE 1:200,000 20 ML PF EPI STA (14:12)
[2023-04-17] MEDS ORDERED: SODIUM CHLORIDE 0.9% PF INJ 10 ML VIAL EPI STA (14:12)
[2023-04-17] MEDS ORDERED: NALOXONE HCL 0.4 MG/1 ML VIAL/CARP IV PRN (14:12)
[2023-04-17] MEDS ORDERED: fentaNYL 2MCG/ML ROPIVACAINE 1.25MG/ML 100 ML BAG EPI PRN (14:12)
[2023-04-17] MEDS ORDERED: ROPIVACAINE 0.5% PF 5 MG/ML 20 ML VIAL EPI PRN (14:12)
[2023-04-17] MEDS ORDERED: ONDANSETRON INJ 2 MG/ML 2 ML VIAL IV PRN (14:12)
[2023-04-17] MEDS ORDERED: LIDOCAINE 2% MPF LOCAL 5 ML VIAL EPI PRN (14:12)
[2023-04-17] MEDS ORDERED: BUPIVACAINE 0.25% PF 30 ML VIAL EPI PRN (14:12)
[2023-04-17] MEDS ORDERED: fentaNYL citrate PF 100 MCG/2 ML VIAL EPI PRN (14:12)
[2023-04-17] MEDS ORDERED: NURSING L&D Epidural Breakthrough Pain Update ONE (14:49)
--- NOTE | 2023-04-17 16:26 | Obstetrical Progress Note ---
Date of Service April 17, 2023 Assessment & Plan Admission and Anticipated Discharge Date Admission Date: April 17, 2023 Subjective Patient is comfortable now, she has received epidural earlier but it took a while to wrk. Now she does not feels any contractions nor pain. She is ready for Lee balloon. No العلي/ Change in vision/ N&V/Epig or RUQ pain VE: cervix 1 cm/ 30%/ -3, posterior, unchanged from before SEE: cervix is visualized, cleaned with betadine, tip of lee was inserted without difficulty,it was filled wit 45 ml sterile water and atteched to her medial tight with traction, patient has not felt anything. FHR categ I, with episodes of decreased variability, no decels, Oxytocin is started Continue to monitor closely Repeat Labs 6 pm Results & Data Vital Signs (Past 12 Hours) Vital Signs Temp Pulse Resp BP Pulse Ox 04/17/23 15:20 18 04/17/23 13:15 18 04/17/23 12:15 18 04/17/23 11:15 18 04/17/23 10:15 20 04/17/23 09:15 20 04/17/23 08:52 67 151/92 H 04/17/23 08:15 20 04/17/23 07:15 20 04/17/23 08:28 69 183/103 H 04/17/23 16:18 70 96 04/17/23 16:14 64 115/68 04/17/23 16:13 62 92 04/17/23 16:08 67 98 04/17/23 16:03 71 98 04/17/23 15:58 95 04/17/23 15:58 75 04/17/23 15:58 72 141/84 H 92 04/17/23 15:53 67 95 04/17/23 15:48 67 96 04/17/23 15:44 68 04/17/23 15:43 67 96 04/17/23 15:44 69 154/88 H 91 04/17/23 15:38 72 95 04/17/23 15:33 68 95 04/17/23 15:28 95 04/17/23 15:28 68 04/17/23 15:28 66 143/89 H 04/17/23 15:23 68 94 04/17/23 15:18 68 95 04/17/23 15:14 66 94 04/17/23 15:13 70 161/91 H 95 04/17/23 15:08 67 95 04/17/23 15:00 20 04/17/23 15:00 36.5 C 20 04/17/23 15:03 74 95 04/17/23 14:58 95 04/17/23 14:58 71 04/17/23 14:58 70 154/94 H 91 04/17/23 14:53 73 96 04/17/23 14:48 73 95 04/17/23 14:43 71 97 04/17/23 14:42 72 167/99 H 04/17/23 14:41 69 94 04/17/23 14:40 69 150/89 H 04/17/23 14:38 72 95 04/17/23 14:36 69 159/89 H 92 04/17/23 14:33 69 95 04/17/23 14:28 71 97 04/17/23 14:29 72 146/87 H 93 04/17/23 14:27 74 162/96 H 04/17/23 14:25 69 152/88 H 04/17/23 14:23 95 04/17/23 14:23 71 04/17/23 14:23 71 160/93 H 93 04/17/23 14:21 67 148/84 H 04/17/23 14:18 69 99 04/17/23 14:19 70 155/97 H 04/17/23 14:17 68 154/95 H 04/17/23 14:15 68 163/101 H 04/17/23 14:13 67 153/91 H 97 04/17/23 14:11 66 158/100 H 04/17/23 14:09 68 159/95 H 04/17/23 14:08 70 99 04/17/23 14:07 64 140/95 04/17/23 14:05 68 20 151/95 H 04/17/23 14:03 67 150/95 H 97 04/17/23 13:58 74 100 04/17/23 13:53 68 98 04/17/23 13:52 69 94 04/17/23 13:48 70 98 04/17/23 13:45 67 141/91 H 04/17/23 13:43 72 95 04/17/23 13:42 66 94 04/17/23 13:38 66 96 04/17/23 13:36 70 94 04/17/23 13:33 70 97 04/17/23 13:28 72 96 04/17/23 13:23 67 97 04/17/23 13:18 72 97 04/17/23 13:15 70 158/89 H 94 04/17/23 13:13 78 95 04/17/23 13:08 70 97 04/17/23 13:03 71 98 04/17/23 12:58 69 99 04/17/23 12:53 68 97 04/17/23 12:48 73 97 04/17/23 12:45 68 156/90 H 94 04/17/23 12:43 72 98 04/17/23 12:38 76 98 04/17/23 12:33 73 98 04/17/23 12:28 69 97 04/17/23 12:23 72 97 04/17/23 12:18 69 98 04/17/23 12:13 74 99 04/17/23 12:08 73 98 04/17/23 12:07 66 151/93 H 04/17/23 12:03 68 97 04/17/23 11:58 70 97 04/17/23 11:53 97 04/17/23 11:53 65 04/17/23 11:53 63 154/87 H 04/17/23 11:48 68 97 04/17/23 11:43 66 97 04/17/23 11:38 72 98 04/17/23 11:37 65 143/91 H 04/17/23 11:33 72 97 04/17/23 11:28 71 97 04/17/23 11:23 66 97 04/17/23 11:22 66 138/90 04/17/23 11:18 73 98 04/17/23 10:52 20 04/17/23 10:52 36.4 C L 20 04/17/23 11:13 70 97 04/17/23 11:08 97 04/17/23 11:08 67 04/17/23 11:08 71 164/89 H 92 04/17/23 11:03 67 96 04/17/23 10:58 64 96 04/17/23 10:53 65 96 04/17/23 10:52 66 04/17/23 10:52 71 158/85 H 91 04/17/23 10:48 66 96 04/17/23 10:43 66 97 04/17/23 10:38 73 97 04/17/23 10:37 68 20 133/86 93 04/17/23 10:33 76 97 04/17/23 10:28 73 95 04/17/23 10:29 77 94 04/17/23 10:23 75 96 04/17/23 10:22 67 137/88 93 04/17/23 10:18 77 99 04/17/23 10:13 75 97 04/17/23 10:08 71 98 04/17/23 10:07 71 148/96 H 93 04/17/23 10:03 70 97 04/17/23 09:58 72 96 04/17/23 09:53 73 97 04/17/23 09:52 70 136/91 04/17/23 09:48 69 98 04/17/23 09:43 68 97 04/17/23 09:38 70 98 04/17/23 09:37 74 142/94 H 92 04/17/23 09:33 72 98 04/17/23 09:28 71 98 04/17/23 09:23 73 97 04/17/23 09:22 70 138/87 04/17/23 09:18 74 98 04/17/23 09:13 66 96 04/17/23 09:08 70 96 04/17/23 09:06 70 132/86 91 04/17/23 09:03 72 97 04/17/23 09:02 70 140/89 04/17/23 08:58 67 97 04/17/23 08:57 68 163/88 H 91 04/17/23 08:53 67 97 04/17/23 08:51 71 04/17/23 08:51 67 151/93 H 92 04/17/23 08:48 67 99 04/17/23 08:46 67 151/92 H 04/17/23 08:43 96 04/17/23 08:43 72 04/17/23 08:42 69 93 04/17/23 08:43 75 149/91 H 04/17/23 08:38 71 97 04/17/23 08:36 70 93 04/17/23 08:37 68 155/93 H 04/17/23 08:33 72 97 04/17/23 08:32 70 161/101 H 04/17/23 08:28 72 98 04/17/23 08:27 69 183/103 H 04/17/23 08:23 72 97 04/17/23 08:18 73 98 04/17/23 08:13 71 98 04/17/23 08:08 69 98 04/17/23 08:03 66 97 04/17/23 07:58 66 98 04/17/23 07:56 65 165/92 H 04/17/23 07:55 68 91 04/17/23 07:53 69 96 04/17/23 07:48 64 96 04/17/23 07:49 66 94 04/17/23 07:43 68 97 04/17/23 07:38 70 97 04/17/23 07:33 67 97 04/17/23 07:28 69 97 04/17/23 07:26 61 166/87 H 04/17/23 07:25 65 91 04/17/23 07:23 69 97 04/17/23 07:18 73 97 04/17/23 07:12 69 98 04/17/23 07:07 66 96 04/17/23 07:02 65 97 04/17/23 06:57 68 98 04/17/23 06:56 64 150/94 H 94 04/17/23 06:52 71 98 04/17/23 06:47 71 98 04/17/23 06:00 18 04/17/23 06:00 18 04/17/23 06:42 69 97 04/17/23 06:37 70 98 04/17/23 06:38 69 155/86 H 04/17/23 06:32 66 98 04/17/23 06:27 65 97 04/17/23 06:26 69 168/85 H 04/17/23 06:25 70 91 04/17/23 06:22 64 97 04/17/23 06:17 71 99 04/17/23 06:12 72 99 04/17/23 06:07 68 98 04/17/23 06:02 69 98 04/17/23 05:57 97 04/17/23 05:57 64 04/17/23 05:57 68 152/82 H 04/17/23 05:55 72 92 04/17/23 05:52 62 97 04/17/23 05:47 67 97 04/17/23 05:42 65 96 04/17/23 05:37 61 96 04/17/23 05:00 16 04/17/23 05:00 16 04/17/23 05:32 63 97 04/17/23 05:27 96 04/17/23 05:27 61 04/17/23 05:26 69 92 04/17/23 05:27 67 154/88 H 04/17/23 05:22 62 97 04/17/23 05:17 65 97 04/17/23 05:12 68 96 04/17/23 05:07 68 96 04/17/23 05:02 66 96 04/17/23 04:57 71 96 04/17/23 04:56 64 134/80 88 L 04/17/23 04:52 64 98 04/17/23 04:47 72 97 04/17/23 04:36 77 98 04/17/23 04:31 68 98 04/17/23 04:26 74 98 04/17/23 04:27 67 133/82 93
[2023-04-17 18:03] LABS: Basophils # (auto) 0.03 K/uL (0.00-0.20); Basophils % (auto) 0.3 %; Eosinophils # (auto) 0.06 K/uL (0.00-0.50); Eosinophils % (auto) 0.6 %; Hematocrit (blood only) 38.4 % (37.0-47.0); Hemoglobin 12.5 g/dl (12.0-16.0); Immature Granulocytes # (auto) 0.02 K/uL (0.01-0.20); Immature Granulocytes % (auto) 0.2 %; Lymphocytes # (auto) 1.67 K/uL (1.20-3.40); Lymphocytes % (auto) 17.8 %; Mean Corpuscular Hgb Conc 32.6 g/dL (32.0-36.0); Mean Corpuscular Volume 86.1 fL (80.0-100.0); Mean Platelet Volume 13.9 fL (9.4-12.4); Monocytes # (auto) 0.52 K/uL (0.11-0.59); Monocytes % (auto) 5.5 %; Neutrophils # (auto) 7.08 K/uL (1.40-6.50); Neutrophils % (auto) 75.6 %; Platelet Count 143 K/uL (130-400); RDW Coefficient of Variation 14.6 % (11.5-14.5); RDW Standard Deviation 45.5 fL (36.4-46.3); Red Blood Count 4.46 M/uL (4.20-5.40); White Blood Count 9.38 K/ul (4.8-10.8)
[2023-04-17 18:19] LABS: BUN Creatinine Ratio 11.5 (10-20); Calcium 7.6 mg/dl (8.6-10.3); Creatinine Clr Calc Pharmacy 104.2 ml/min; Est GFR (African American) 114.2 ml/min; Est GFR (Non-African American) 98.5 ml/min; Potassium 4.2 mmol/L (3.5-5.1)
[2023-04-17 18:35] LABS: Albumin Level 3.3 gm/dl (3.4-5.0); Bilirubin,Total 0.3 mg/dl (0.2-1.0); Globulin 3.2 gm/dl (2.5-4.0); Total Protein 6.5 gm/dl (6.0-8.3)
--- NOTE | 2023-04-17 18:36 | Obstetrical Progress Note ---
Date of Service April 17, 2023 Assessment & Plan Admission and Anticipated Discharge Date Admission Date: April 17, 2023 Subjective Patient is reevaluated. She has been comfortable, no complaints No العلي/ Change in vision/ N&V/ Epig or RUQ pain/ ctxs VSS Afebrile VE; lee bulb is in vagina, removed, cervix is 4 cm stretchable to 5 cm/ 50%/ - 2, tight amniotic bag, AROM'ed, abundand clear fluid was obtained. FHR 130's,with episodes or minimal to moderate variability Labs stable, Mag level 6 Conitnue to monitor closely, decrease IV magnesium to 1 gr/ hour 04/17/23 04/17/23 04/17/23 Range/Units 17:43 17:43 09:44 WBC 9.38 7.30 (4.8-10.8) K/ul RBC 4.46 4.41 (4.20-5.40) M/uL Hgb 12.5 12.3 (12.0-16.0) g/dl Hct 38.4 38.4 (37.0-47.0) % MCV 86.1 87.1 (80.0-100.0) fL MCH 28.0 27.9 (25.0-34.0) pg MCHC 32.6 32.0 (32.0-36.0) g/dL RDW Std Deviation 45.5 45.8 (36.4-46.3) fL RDW Coeff of Aj 14.6 H 14.5 (11.5-14.5) % Plt Count 143 141 (130-400) K/uL MPV 13.9 H 13.6 H (9.4-12.4) fL Immature Gran % (Auto) 0.2 0.5 % Neut % (Auto) 75.6 70.0 % Lymph % (Auto) 17.8 23.4 % [place] % (Auto) 5.5 4.9 % Eos % (Auto) 0.6 0.8 % Baso % (Auto) 0.3 0.4 % Neut # (Auto) 7.08 H 5.10 (1.40-6.50) K/uL Lymph # (Auto) 1.67 1.71 (1.20-3.40) K/uL [place] # (Auto) 0.52 0.36 (0.11-0.59) K/uL Eos # (Auto) 0.06 0.06 (0.00-0.50) K/uL Baso # (Auto) 0.03 0.03 (0.00-0.20) K/uL Immature Gran # (Auto) 0.02 0.04 (0.01-0.20) K/uL Sodium 129 L (136-145) mmol/L Potassium 4.2 (3.5-5.1) mmol/L Chloride 103 (98-107) mmol/L Carbon Dioxide 18 L (21-32) mmol/L Anion Gap 8 (3-11) BUN 9 (6-23) mg/dl Creatinine 0.78 (0.6-1.2) mg/dl Est Cr Clr Drug Dosing 104.2 ml/min Est GFR ( Amer) 114.2 ml/min Est GFR (Non-Af Amer) 98.5 ml/min BUN/Creatinine Ratio 11.5 (10-20) Glucose 89 (70-99(Fasting)) mg/dl Calcium 7.6 L (8.6-10.3) mg/dl Magnesium 6.0 H* (1.7-2.4) mg/dl Total Bilirubin 0.3 (0.2-1.0) mg/dl AST 26 (13-39) U/L ALT 11 (7-52) U/L Alkaline Phosphatase 113 H (34-104) U/L Total Protein 6.5 (6.0-8.3) gm/dl Albumin 3.3 L (3.4-5.0) gm/dl Globulin 3.2 (2.5-4.0) gm/dl Albumin/Globulin Ratio 1.0 (0.9-2) Urine Color Urine Appearance (Clear) Urine pH (4.5-7.5) Ur Specific [place] (1.000-1.030) Urine Protein (Negative) Urine Glucose (UA) (Negative) Urine Ketones (Negative) Urine Blood (Negative) Urine Nitrite (Negative) Urine Bilirubin (Negative) Urine Urobilinogen (Negative) Ur Leukocyte Esterase (Negative) Ur Random Creatinine mg/dl U Random Total Protein (0-11.9) mg/dl Protein/Creatinin Ratio (0-0.2) 04/17/23 04/17/23 04/17/23 Range/Units 09:44 01:16 01:16 WBC (4.8-10.8) K/ul RBC (4.20-5.40) M/uL Hgb (12.0-16.0) g/dl Hct (37.0-47.0) % MCV (80.0-100.0) fL MCH (25.0-34.0) pg MCHC (32.0-36.0) g/dL RDW Std Deviation (36.4-46.3) fL RDW Coeff of Aj (11.5-14.5) % Plt Count (130-400) K/uL MPV (9.4-12.4) fL Immature Gran % (Auto) % Neut % (Auto) % Lymph % (Auto) % [place] % (Auto) % Eos % (Auto) % Baso % (Auto) % Neut # (Auto) (1.40-6.50) K/uL Lymph # (Auto) (1.20-3.40) K/uL [place] # (Auto) (0.11-0.59) K/uL Eos # (Auto) (0.00-0.50) K/uL Baso # (Auto) (0.00-0.20) K/uL Immature Gran # (Auto) (0.01-0.20) K/uL Sodium 131 L (136-145) mmol/L Potassium 3.9 (3.5-5.1) mmol/L Chloride 105 (98-107) mmol/L Carbon Dioxide 16 L (21-32) mmol/L Anion Gap 10 (3-11) BUN 11 (6-23) mg/dl Creatinine 0.72 (0.6-1.2) mg/dl Est Cr Clr Drug Dosing 112.9 ml/min Est GFR ( Amer) 125.8 ml/min Est GFR (Non-Af Amer) 108.5 ml/min BUN/Creatinine Ratio 15.3 (10-20) Glucose 131 H (70-99(Fasting)) mg/dl Calcium 8.2 L (8.6-10.3) mg/dl Magnesium 6.0 H* (1.7-2.4) mg/dl Total Bilirubin 0.3 (0.2-1.0) mg/dl AST 25 (13-39) U/L ALT 12 (7-52) U/L Alkaline Phosphatase 107 H (34-104) U/L Total Protein 6.5 (6.0-8.3) gm/dl Albumin 3.3 L (3.4-5.0) gm/dl Globulin 3.2 (2.5-4.0) gm/dl Albumin/Globulin Ratio 1.0 (0.9-2) Urine Color Yellow Urine Appearance Clear (Clear) Urine pH 6.5 (4.5-7.5) Ur Specific [place] 1.010 (1.000-1.030) Urine Protein Negative (Negative) Urine Glucose (UA) Negative (Negative) Urine Ketones Negative (Negative) Urine Blood Negative (Negative) Urine Nitrite Negative (Negative) Urine Bilirubin Negative (Negative) Urine Urobilinogen Negative (Negative) Ur Leukocyte Esterase Negative (Negative) Ur Random Creatinine 66.7 mg/dl U Random Total Protein 10.5 (0-11.9) mg/dl Protein/Creatinin Ratio 0.2 (0-0.2) 04/16/23 04/16/23 Range/Units 23:20 23:20 WBC 8.55 (4.8-10.8) K/ul RBC 4.19 L (4.20-5.40) M/uL Hgb 11.7 L (12.0-16.0) g/dl Hct 36.0 L (37.0-47.0) % MCV 85.9 (80.0-100.0) fL MCH 27.9 (25.0-34.0) pg MCHC 32.5 (32.0-36.0) g/dL RDW Std Deviation 45.1 (36.4-46.3) fL RDW Coeff of Aj 14.6 H (11.5-14.5) % Plt Count 148 (130-400) K/uL MPV 13.5 H (9.4-12.4) fL Immature Gran % (Auto) 0.4 % Neut % (Auto) 61.4 % Lymph % (Auto) 29.6 % [place] % (Auto) 7.1 % Eos % (Auto) 1.1 % Baso % (Auto) 0.4 % Neut # (Auto) 5.26 (1.40-6.50) K/uL Lymph # (Auto) 2.53 (1.20-3.40) K/uL [place] # (Auto) 0.61 H (0.11-0.59) K/uL Eos # (Auto) 0.09 (0.00-0.50) K/uL Baso # (Auto) 0.03 (0.00-0.20) K/uL Immature Gran # (Auto) 0.03 (0.01-0.20) K/uL Sodium 134 L (136-145) mmol/L Potassium 4.3 (3.5-5.1) mmol/L Chloride 108 H (98-107) mmol/L Carbon Dioxide 18 L (21-32) mmol/L Anion Gap 8 (3-11) BUN 12 (6-23) mg/dl Creatinine 0.65 (0.6-1.2) mg/dl Est Cr Clr Drug Dosing 125.0 ml/min Est GFR ( Amer) 133.3 ml/min Est GFR (Non-Af Amer) 115.0 ml/min BUN/Creatinine Ratio 18.5 (10-20) Glucose 90 (70-99(Fasting)) mg/dl Calcium 9.0 (8.6-10.3) mg/dl Magnesium (1.7-2.4) mg/dl Total Bilirubin 0.2 (0.2-1.0) mg/dl AST 23 (13-39) U/L ALT 12 (7-52) U/L Alkaline Phosphatase 101 (34-104) U/L Total Protein 6.2 (6.0-8.3) gm/dl Albumin 3.2 L (3.4-5.0) gm/dl Globulin 3.0 (2.5-4.0) gm/dl Albumin/Globulin Ratio 1.1 (0.9-2) Urine Color Urine Appearance (Clear) Urine pH (4.5-7.5) Ur Specific [place] (1.000-1.030) Urine Protein (Negative) Urine Glucose (UA) (Negative) Urine Ketones (Negative) Urine Blood (Negative) Urine Nitrite (Negative) Urine Bilirubin (Negative) Urine Urobilinogen (Negative) Ur Leukocyte Esterase (Negative) Ur Random Creatinine mg/dl U Random Total Protein (0-11.9) mg/dl Protein/Creatinin Ratio (0-0.2) Results & Data Vital Signs (Past 12 Hours) Vital Signs Temp Pulse Resp BP Pulse Ox 04/17/23 15:20 18 04/17/23 13:15 18 04/17/23 12:15 18 04/17/23 11:15 18 04/17/23 10:15 20 04/17/23 09:15 20 04/17/23 08:52 67 151/92 H 04/17/23 08:15 20 04/17/23 07:15 20 04/17/23 08:28 69 183/103 H 04/17/23 18:29 67 157/91 H 98 04/17/23 18:24 70 98 04/17/23 18:19 71 99 04/17/23 18:14 67 98 04/17/23 18:13 70 156/95 H 04/17/23 18:09 63 96 04/17/23 18:04 64 96 04/17/23 17:59 65 130/76 97 04/17/23 17:54 64 96 04/17/23 17:49 58 L 96 04/17/23 17:44 97 04/17/23 17:44 66 04/17/23 17:44 63 124/74 04/17/23 17:39 63 98 04/17/23 17:34 63 97 04/17/23 17:29 69 98 04/17/23 17:28 68 20 127/76 04/17/23 17:24 66 96 04/17/23 17:20 72 94 04/17/23 17:19 67 95 04/17/23 17:14 65 95 04/17/23 17:13 60 112/66 93 04/17/23 17:09 64 96 04/17/23 17:08 71 94 04/17/23 17:04 69 95 04/17/23 17:02 69 93 04/17/23 16:59 66 96 04/17/23 16:58 59 L 16 103/63 04/17/23 16:55 64 94 04/17/23 16:54 71 94 04/17/23 16:50 63 94 04/17/23 16:49 63 96 04/17/23 16:44 66 96 04/17/23 16:43 66 119/66 04/17/23 16:39 64 96 04/17/23 16:38 71 94 04/17/23 16:34 66 96 04/17/23 16:29 97 04/17/23 16:29 69 04/17/23 16:29 60 18 112/69 04/17/23 16:27 69 94 04/17/23 16:23 68 94 04/17/23 16:22 70 93 04/17/23 16:18 70 96 04/17/23 16:14 64 115/68 04/17/23 16:13 62 92 04/17/23 16:08 67 98 04/17/23 16:03 71 20 98 04/17/23 15:58 18 95 04/17/23 15:58 75 04/17/23 15:58 72 141/84 H 92 04/17/23 15:53 67 95 04/17/23 15:48 67 96 04/17/23 15:44 68 04/17/23 15:43 67 96 04/17/23 15:44 69 154/88 H 91 04/17/23 15:38 72 95 04/17/23 15:33 68 95 04/17/23 15:28 95 04/17/23 15:28 68 04/17/23 15:28 66 20 143/89 H 04/17/23 15:23 68 94 04/17/23 15:18 68 95 04/17/23 15:14 66 94 04/17/23 15:13 70 161/91 H 95 04/17/23 15:08 67 95 04/17/23 15:00 20 04/17/23 15:00 36.5 C 20 04/17/23 15:03 74 95 04/17/23 14:58 95 04/17/23 14:58 71 04/17/23 14:58 70 154/94 H 91 04/17/23 14:53 73 96 04/17/23 14:48 73 95 04/17/23 14:43 71 97 04/17/23 14:42 72 167/99 H 04/17/23 14:41 69 94 04/17/23 14:40 69 150/89 H 04/17/23 14:38 72 95 04/17/23 14:36 69 159/89 H 92 04/17/23 14:33 69 95 04/17/23 14:28 71 97 04/17/23 14:29 72 146/87 H 93 04/17/23 14:27 74 162/96 H 04/17/23 14:25 69 152/88 H 04/17/23 14:23 95 04/17/23 14:23 71 04/17/23 14:23 71 160/93 H 93 04/17/23 14:21 67 148/84 H 04/17/23 14:18 69 99 04/17/23 14:19 70 155/97 H 04/17/23 14:17 68 154/95 H 04/17/23 14:15 68 163/101 H 04/17/23 14:13 67 153/91 H 97 04/17/23 14:11 66 158/100 H 04/17/23 14:09 68 159/95 H 04/17/23 14:08 70 99 04/17/23 14:07 64 140/95 04/17/23 14:05 68 20 151/95 H 04/17/23 14:03 67 150/95 H 97 04/17/23 13:58 74 100 04/17/23 13:53 68 98 04/17/23 13:52 69 94 04/17/23 13:48 70 98 04/17/23 13:45 67 141/91 H 04/17/23 13:43 72 95 04/17/23 13:42 66 94 04/17/23 13:38 66 96 04/17/23 13:36 70 94 04/17/23 13:33 70 97 04/17/23 13:28 72 96 04/17/23 13:23 67 97 04/17/23 13:18 72 97 04/17/23 13:15 70 158/89 H 94 04/17/23 13:13 78 95 04/17/23 13:08 70 97 04/17/23 13:03 71 98 04/17/23 12:58 69 99 04/17/23 12:53 68 97 04/17/23 12:48 73 97 04/17/23 12:45 68 156/90 H 94 04/17/23 12:43 72 98 04/17/23 12:38 76 98 04/17/23 12:33 73 98 04/17/23 12:28 69 97 04/17/23 12:23 72 97 04/17/23 12:18 69 98 04/17/23 12:13 74 99 04/17/23 12:08 73 98 04/17/23 12:07 66 151/93 H 04/17/23 12:03 68 97 04/17/23 11:58 70 97 04/17/23 11:53 97 04/17/23 11:53 65 04/17/23 11:53 63 154/87 H 04/17/23 11:48 68 97 04/17/23 11:43 66 97 04/17/23 11:38 72 98 04/17/23 11:37 65 143/91 H 04/17/23 11:33 72 97 04/17/23 11:28 71 97 04/17/23 11:23 66 97 04/17/23 11:22 66 138/90 04/17/23 11:18 73 98 04/17/23 10:52 20 04/17/23 10:52 36.4 C L 20 04/17/23 11:13 70 97 04/17/23 11:08 97 04/17/23 11:08 67 04/17/23 11:08 71 164/89 H 92 04/17/23 11:03 67 96 04/17/23 10:58 64 96 04/17/23 10:53 65 96 04/17/23 10:52 66 04/17/23 10:52 71 158/85 H 91 04/17/23 10:48 66 96 04/17/23 10:43 66 97 04/17/23 10:38 73 97 04/17/23 10:37 68 20 133/86 93 04/17/23 10:33 76 97 04/17/23 10:28 73 95 04/17/23 10:29 77 94 04/17/23 10:23 75 96 04/17/23 10:22 67 137/88 93 04/17/23 10:18 77 99 04/17/23 10:13 75 97 04/17/23 10:08 71 98 04/17/23 10:07 71 148/96 H 93 04/17/23 10:03 70 97 04/17/23 09:58 72 96 04/17/23 09:53 73 97 04/17/23 09:52 70 136/91 04/17/23 09:48 69 98 04/17/23 09:43 68 97 04/17/23 09:38 70 98 04/17/23 09:37 74 142/94 H 92 04/17/23 09:33 72 98 04/17/23 09:28 71 98 04/17/23 09:23 73 97 04/17/23 09:22 70 138/87 04/17/23 09:18 74 98 04/17/23 09:13 66 96 04/17/23 09:08 70 96 04/17/23 09:06 70 132/86 91 04/17/23 09:03 72 97 04/17/23 09:02 70 140/89 04/17/23 08:58 67 97 04/17/23 08:57 68 163/88 H 91 04/17/23 08:53 67 97 04/17/23 08:51 71 04/17/23 08:51 67 151/93 H 92 04/17/23 08:48 67 99 04/17/23 08:46 67 151/92 H 04/17/23 08:43 96 04/17/23 08:43 72 04/17/23 08:42 69 93 04/17/23 08:43 75 149/91 H 04/17/23 08:38 71 97 04/17/23 08:36 70 93 04/17/23 08:37 68 155/93 H 04/17/23 08:33 72 97 04/17/23 08:32 70 161/101 H 04/17/23 08:28 72 98 04/17/23 08:27 69 183/103 H 04/17/23 08:23 72 97 04/17/23 08:18 73 98 04/17/23 08:13 71 98 04/17/23 08:08 69 98 04/17/23 08:03 66 97 04/17/23 07:58 66 98 04/17/23 07:56 65 165/92 H 04/17/23 07:55 68 91 04/17/23 07:53 69 96 04/17/23 07:48 64 96 04/17/23 07:49 66 94 04/17/23 07:43 68 97 04/17/23 07:38 70 97 04/17/23 07:33 67 97 04/17/23 07:28 69 97 04/17/23 07:26 61 166/87 H 04/17/23 07:25 65 91 04/17/23 07:23 69 97 04/17/23 07:18 73 97 04/17/23 07:12 69 98 04/17/23 07:07 66 96 04/17/23 07:02 65 97 04/17/23 06:57 68 98 04/17/23 06:56 64 150/94 H 94 04/17/23 06:52 71 98 04/17/23 06:47 71 98 04/17/23 06:42 69 97 04/17/23 06:37 70 98 04/17/23 06:38 69 155/86 H 04/17/23 06:32 66 98
--- NOTE | 2023-04-17 19:17 | Obstetrical Progress Note ---
Date of Service April 17, 2023 Assessment & Plan Admission and Anticipated Discharge Date Admission Date: April 17, 2023 Subjective FHR has been having early minimal variability and decels ( variable by shape) with contractions. VE; 5/ 70%, more effaced, -2, ROP, scalp stimulation caused increased variability Nursing team changing her position to left lateral side with peanut ball Continue to monitor closely. Results & Data Vital Signs (Past 12 Hours) Vital Signs Temp Pulse Resp BP Pulse Ox 04/17/23 15:20 18 04/17/23 13:15 18 04/17/23 12:15 18 04/17/23 11:15 18 04/17/23 10:15 20 04/17/23 09:15 20 04/17/23 08:52 67 151/92 H 04/17/23 08:15 20 04/17/23 08:28 69 183/103 H 04/17/23 19:14 78 94 04/17/23 19:09 73 99 04/17/23 19:04 74 98 04/17/23 18:59 72 98 04/17/23 18:58 72 158/94 H 04/17/23 18:54 67 96 04/17/23 18:49 73 97 04/17/23 18:44 97 04/17/23 18:44 73 04/17/23 18:44 69 144/87 H 04/17/23 18:39 69 98 04/17/23 18:34 71 96 04/17/23 18:29 67 157/91 H 98 04/17/23 18:24 70 98 04/17/23 18:19 71 99 04/17/23 18:14 67 98 04/17/23 18:13 70 156/95 H 04/17/23 18:09 63 96 04/17/23 18:04 64 96 04/17/23 17:59 65 130/76 97 04/17/23 17:54 64 96 04/17/23 17:49 58 L 96 04/17/23 17:44 97 04/17/23 17:44 66 04/17/23 17:44 63 124/74 04/17/23 17:39 63 98 04/17/23 17:34 63 97 04/17/23 17:29 69 98 04/17/23 17:28 68 20 127/76 04/17/23 17:24 66 96 10/08/23 17:20 72 94 04/17/23 17:19 67 95 04/17/23 17:14 65 95 04/17/23 17:13 60 112/66 93 04/17/23 17:09 64 96 04/17/23 17:08 71 94 04/17/23 17:04 69 95 04/17/23 17:02 69 93 04/17/23 16:59 66 96 04/17/23 16:58 59 L 16 103/63 04/17/23 16:55 64 94 04/17/23 16:54 71 94 04/17/23 16:50 63 94 04/17/23 16:49 63 96 04/17/23 16:44 66 96 04/17/23 16:43 66 119/66 04/17/23 16:39 64 96 04/17/23 16:38 71 94 04/17/23 16:34 66 96 04/17/23 16:29 97 04/17/23 16:29 69 04/17/23 16:29 60 18 112/69 04/17/23 16:27 69 94 04/17/23 16:23 68 94 04/17/23 16:22 70 93 04/17/23 16:18 70 96 04/17/23 16:14 64 115/68 04/17/23 16:13 62 92 04/17/23 16:08 67 98 04/17/23 16:03 71 20 98 04/17/23 15:58 18 95 04/17/23 15:58 75 04/17/23 15:58 72 141/84 H 92 04/17/23 15:53 67 95 04/17/23 15:48 67 96 04/17/23 15:44 68 04/17/23 15:43 67 96 04/17/23 15:44 69 154/88 H 91 04/17/23 15:38 72 95 04/17/23 15:33 68 95 04/17/23 15:28 95 04/17/23 15:28 68 04/17/23 15:28 66 20 143/89 H 04/17/23 15:23 68 94 04/17/23 15:18 68 95 04/17/23 15:14 66 94 04/17/23 15:13 70 161/91 H 95 04/17/23 15:08 67 95 04/17/23 15:00 20 04/17/23 15:00 36.5 C 20 04/17/23 15:03 74 95 04/17/23 14:58 95 04/17/23 14:58 71 04/17/23 14:58 70 154/94 H 91 04/17/23 14:53 73 96 04/17/23 14:48 73 95 04/17/23 14:43 71 97 04/17/23 14:42 72 167/99 H 04/17/23 14:41 69 94 04/17/23 14:40 69 150/89 H 04/17/23 14:38 72 95 04/17/23 14:36 69 159/89 H 92 04/17/23 14:33 69 95 04/17/23 14:28 71 97 04/17/23 14:29 72 146/87 H 93 04/17/23 14:27 74 162/96 H 04/17/23 14:25 69 152/88 H 04/17/23 14:23 95 04/17/23 14:23 71 04/17/23 14:23 71 160/93 H 93 04/17/23 14:21 67 148/84 H 04/17/23 14:18 69 99 04/17/23 14:19 70 155/97 H 04/17/23 14:17 68 154/95 H 04/17/23 14:15 68 163/101 H 04/17/23 14:13 67 153/91 H 97 04/17/23 14:11 66 158/100 H 04/17/23 14:09 68 159/95 H 04/17/23 14:08 70 99 04/17/23 14:07 64 140/95 04/17/23 14:05 68 20 151/95 H 04/17/23 14:03 67 150/95 H 97 04/17/23 13:58 74 100 04/17/23 13:53 68 98 04/17/23 13:52 69 94 04/17/23 13:48 70 98 04/17/23 13:45 67 141/91 H 04/17/23 13:43 72 95 04/17/23 13:42 66 94 04/17/23 13:38 66 96 04/17/23 13:36 70 94 04/17/23 13:33 70 97 04/17/23 13:28 72 96 04/17/23 13:23 67 97 04/17/23 13:18 72 97 04/17/23 13:15 70 158/89 H 94 04/17/23 13:13 78 95 04/17/23 13:08 70 97 04/17/23 13:03 71 98 04/17/23 12:58 69 99 04/17/23 12:53 68 97 04/17/23 12:48 73 97 04/17/23 12:45 68 156/90 H 94 04/17/23 12:43 72 98 04/17/23 12:38 76 98 04/17/23 12:33 73 98 04/17/23 12:28 69 97 04/17/23 12:23 72 97 04/17/23 12:18 69 98 04/17/23 12:13 74 99 04/17/23 12:08 73 98 04/17/23 12:07 66 151/93 H 04/17/23 12:03 68 97 04/17/23 11:58 70 97 04/17/23 11:53 97 04/17/23 11:53 65 04/17/23 11:53 63 154/87 H 04/17/23 11:48 68 97 04/17/23 11:43 66 97 04/17/23 11:38 72 98 04/17/23 11:37 65 143/91 H 04/17/23 11:33 72 97 04/17/23 11:28 71 97 04/17/23 11:23 66 97 04/17/23 11:22 66 138/90 04/17/23 11:18 73 98 04/17/23 10:52 20 04/17/23 10:52 36.4 C L 20 04/17/23 11:13 70 97 04/17/23 11:08 97 04/17/23 11:08 67 04/17/23 11:08 71 164/89 H 92 04/17/23 11:03 67 96 04/17/23 10:58 64 96 04/17/23 10:53 65 96 04/17/23 10:52 66 04/17/23 10:52 71 158/85 H 91 04/17/23 10:48 66 96 04/17/23 10:43 66 97 04/17/23 10:38 73 97 04/17/23 10:37 68 20 133/86 93 04/17/23 10:33 76 97 04/17/23 10:28 73 95 04/17/23 10:29 77 94 04/17/23 10:23 75 96 04/17/23 10:22 67 137/88 93 04/17/23 10:18 77 99 04/17/23 10:13 75 97 04/17/23 10:08 71 98 04/17/23 10:07 71 148/96 H 93 04/17/23 10:03 70 97 04/17/23 09:58 72 96 04/17/23 09:53 73 97 04/17/23 09:52 70 136/91 04/17/23 09:48 69 98 04/17/23 09:43 68 97 04/17/23 09:38 70 98 04/17/23 09:37 74 142/94 H 92 04/17/23 09:33 72 98 04/17/23 09:28 71 98 04/17/23 09:23 73 97 04/17/23 09:22 70 138/87 04/17/23 09:18 74 98 04/17/23 09:13 66 96 04/17/23 09:08 70 96 04/17/23 09:06 70 132/86 91 04/17/23 09:03 72 97 04/17/23 09:02 70 140/89 04/17/23 08:58 67 97 04/17/23 08:57 68 163/88 H 91 04/17/23 08:53 67 97 04/17/23 08:51 71 04/17/23 08:51 67 151/93 H 92 04/17/23 08:48 67 99 04/17/23 08:46 67 151/92 H 04/17/23 08:43 96 04/17/23 08:43 72 04/17/23 08:42 69 93 04/17/23 08:43 75 149/91 H 04/17/23 08:38 71 97 04/17/23 08:36 70 93 04/17/23 08:37 68 155/93 H 04/17/23 08:33 72 97 04/17/23 08:32 70 161/101 H 04/17/23 08:28 72 98 04/17/23 08:27 69 183/103 H 04/17/23 08:23 72 97 04/17/23 08:18 73 98 04/17/23 08:13 71 98 04/17/23 08:08 69 98 04/17/23 08:03 66 97 04/17/23 07:58 66 98 04/17/23 07:56 65 165/92 H 04/17/23 07:55 68 91 04/17/23 07:53 69 96 04/17/23 07:48 64 96 04/17/23 07:49 66 94 04/17/23 07:43 68 97 04/17/23 07:38 70 97 04/17/23 07:33 67 97 04/17/23 07:28 69 97 04/17/23 07:26 61 166/87 H 04/17/23 07:25 65 91 04/17/23 07:23 69 97 04/17/23 07:18 73 97
--- NOTE | 2023-04-17 19:41 | Obstetrical Progress Note ---
Date of Service April 17, 2023 Assessment & Plan Admission and Anticipated Discharge Date Admission Date: April 17, 2023 Subjective FHR had deeper decels with contractions with quick recovery VE; 7/ 80%/0, much lower then before, again VE caused increased varibility Continue to monitor closely, anticipate Results & Data Vital Signs (Past 12 Hours) Vital Signs Temp Pulse Resp BP Pulse Ox 04/17/23 15:20 18 04/17/23 13:15 18 04/17/23 12:15 18 04/17/23 11:15 18 04/17/23 10:15 20 04/17/23 09:15 20 04/17/23 08:52 67 151/92 H 04/17/23 08:15 20 04/17/23 08:28 69 183/103 H 04/17/23 19:34 79 99 04/17/23 19:29 71 97 04/17/23 19:28 66 133/78 04/17/23 19:24 65 97 04/17/23 19:19 66 98 04/17/23 19:14 97 04/17/23 19:14 69 04/17/23 19:14 78 142/97 H 94 04/17/23 19:09 73 99 04/17/23 19:04 74 98 04/17/23 18:59 72 98 04/17/23 18:58 72 20 158/94 H 04/17/23 18:54 67 96 04/17/23 18:49 73 97 04/17/23 18:44 97 04/17/23 18:44 73 04/17/23 18:44 69 144/87 H 04/17/23 18:39 69 98 04/17/23 18:34 71 96 04/17/23 18:29 67 20 157/91 H 98 04/17/23 18:24 70 98 04/17/23 18:19 71 99 04/17/23 18:14 67 98 04/17/23 18:13 70 156/95 H 04/17/23 18:09 63 96 04/17/23 18:04 64 96 04/17/23 17:59 65 20 130/76 97 04/17/23 17:54 64 96 04/17/23 17:49 58 L 96 04/17/23 17:44 97 04/17/23 17:44 66 04/17/23 17:44 63 124/74 04/17/23 17:39 63 98 04/17/23 17:34 63 97 04/17/23 17:29 69 98 04/17/23 17:28 68 20 127/76 04/17/23 17:24 66 96 04/17/23 17:20 72 94 04/17/23 17:19 67 95 04/17/23 17:14 65 95 04/17/23 17:13 60 112/66 93 04/17/23 17:09 64 96 04/17/23 17:08 71 94 04/17/23 17:04 69 95 04/17/23 17:02 69 93 04/17/23 16:59 66 96 04/17/23 16:58 59 L 16 103/63 04/17/23 16:55 64 94 04/17/23 16:54 71 94 04/17/23 16:50 63 94 04/17/23 16:49 63 96 04/17/23 16:44 66 96 04/17/23 16:43 66 119/66 04/17/23 16:39 64 96 04/17/23 16:38 71 94 04/17/23 16:34 66 96 04/17/23 16:29 97 04/17/23 16:29 69 04/17/23 16:29 60 18 112/69 04/17/23 16:27 69 94 04/17/23 16:23 68 94 04/17/23 16:22 70 93 04/17/23 16:18 70 96 04/17/23 16:14 64 115/68 04/17/23 16:13 62 92 04/17/23 16:08 67 98 04/17/23 16:03 71 20 98 04/17/23 15:58 18 95 04/17/23 15:58 75 04/17/23 15:58 72 141/84 H 92 04/17/23 15:53 67 95 04/17/23 15:48 67 96 04/17/23 15:44 68 04/17/23 15:43 67 96 04/17/23 15:44 69 154/88 H 91 04/17/23 15:38 72 95 04/17/23 15:33 68 95 04/17/23 15:28 95 04/17/23 15:28 68 04/17/23 15:28 66 20 143/89 H 04/17/23 15:23 68 94 04/17/23 15:18 68 95 04/17/23 15:14 66 94 04/17/23 15:13 70 161/91 H 95 04/17/23 15:08 67 95 04/17/23 15:00 20 04/17/23 15:00 36.5 C 20 04/17/23 15:03 74 95 04/17/23 14:58 95 04/17/23 14:58 71 04/17/23 14:58 70 154/94 H 91 04/17/23 14:53 73 96 04/17/23 14:48 73 95 04/17/23 14:43 71 97 04/17/23 14:42 72 167/99 H 04/17/23 14:41 69 94 04/17/23 14:40 69 150/89 H 04/17/23 14:38 72 95 04/17/23 14:36 69 159/89 H 92 04/17/23 14:33 69 95 04/17/23 14:28 71 97 04/17/23 14:29 72 146/87 H 93 04/17/23 14:27 74 162/96 H 04/17/23 14:25 69 152/88 H 04/17/23 14:23 95 04/17/23 14:23 71 04/17/23 14:23 71 160/93 H 93 04/17/23 14:21 67 148/84 H 04/17/23 14:18 69 99 04/17/23 14:19 70 155/97 H 04/17/23 14:17 68 154/95 H 04/17/23 14:15 68 163/101 H 04/17/23 14:13 67 153/91 H 97 04/17/23 14:11 66 158/100 H 04/17/23 14:09 68 159/95 H 04/17/23 14:08 70 99 04/17/23 14:07 64 140/95 04/17/23 14:05 68 20 151/95 H 04/17/23 14:03 67 150/95 H 97 04/17/23 13:58 74 100 04/17/23 13:53 68 98 04/17/23 13:52 69 94 04/17/23 13:48 70 98 04/17/23 13:45 67 141/91 H 04/17/23 13:43 72 95 04/17/23 13:42 66 94 04/17/23 13:38 66 96 04/17/23 13:36 70 94 04/17/23 13:33 70 97 04/17/23 13:28 72 96 04/17/23 13:23 67 97 04/17/23 13:18 72 97 04/17/23 13:15 70 158/89 H 94 04/17/23 13:13 78 95 04/17/23 13:08 70 97 04/17/23 13:03 71 98 04/17/23 12:58 69 99 04/17/23 12:53 68 97 04/17/23 12:48 73 97 04/17/23 12:45 68 156/90 H 94 04/17/23 12:43 72 98 04/17/23 12:38 76 98 04/17/23 12:33 73 98 04/17/23 12:28 69 97 04/17/23 12:23 72 97 04/17/23 12:18 69 98 04/17/23 12:13 74 99 04/17/23 12:08 73 98 04/17/23 12:07 66 151/93 H 04/17/23 12:03 68 97 04/17/23 11:58 70 97 04/17/23 11:53 97 04/17/23 11:53 65 04/17/23 11:53 63 154/87 H 04/17/23 11:48 68 97 04/17/23 11:43 66 97 04/17/23 11:38 72 98 04/17/23 11:37 65 143/91 H 04/17/23 11:33 72 97 04/17/23 11:28 71 97 04/17/23 11:23 66 97 04/17/23 11:22 66 138/90 04/17/23 11:18 73 98 04/17/23 10:52 20 04/17/23 10:52 36.4 C L 20 04/17/23 11:13 70 97 04/17/23 11:08 97 04/17/23 11:08 67 04/17/23 11:08 71 164/89 H 92 04/17/23 11:03 67 96 04/17/23 10:58 64 96 04/17/23 10:53 65 96 04/17/23 10:52 66 04/17/23 10:52 71 158/85 H 91 04/17/23 10:48 66 96 04/17/23 10:43 66 97 04/17/23 10:38 73 97 04/17/23 10:37 68 20 133/86 93 04/17/23 10:33 76 97 04/17/23 10:28 73 95 04/17/23 10:29 77 94 04/17/23 10:23 75 96 04/17/23 10:22 67 137/88 93 04/17/23 10:18 77 99 04/17/23 10:13 75 97 04/17/23 10:08 71 98 04/17/23 10:07 71 148/96 H 93 04/17/23 10:03 70 97 04/17/23 09:58 72 96 04/17/23 09:53 73 97 04/17/23 09:52 70 136/91 04/17/23 09:48 69 98 04/17/23 09:43 68 97 04/17/23 09:38 70 98 04/17/23 09:37 74 142/94 H 92 04/17/23 09:33 72 98 04/17/23 09:28 71 98 04/17/23 09:23 73 97 04/17/23 09:22 70 138/87 04/17/23 09:18 74 98 04/17/23 09:13 66 96 04/17/23 09:08 70 96 04/17/23 09:06 70 132/86 91 04/17/23 09:03 72 97 04/17/23 09:02 70 140/89 04/17/23 08:58 67 97 04/17/23 08:57 68 163/88 H 91 04/17/23 08:53 67 97 04/17/23 08:51 71 04/17/23 08:51 67 151/93 H 92 04/17/23 08:48 67 99 04/17/23 08:46 67 151/92 H 04/17/23 08:43 96 04/17/23 08:43 72 04/17/23 08:42 69 93 04/17/23 08:43 75 149/91 H 04/17/23 08:38 71 97 04/17/23 08:36 70 93 04/17/23 08:37 68 155/93 H 04/17/23 08:33 72 97 04/17/23 08:32 70 161/101 H 04/17/23 08:28 72 98 04/17/23 08:27 69 183/103 H 04/17/23 08:23 72 97 04/17/23 08:18 73 98 04/17/23 08:13 71 98 04/17/23 08:08 69 98 04/17/23 08:03 66 97 04/17/23 07:58 66 98 04/17/23 07:56 65 165/92 H 04/17/23 07:55 68 91 04/17/23 07:53 69 96 04/17/23 07:48 64 96 04/17/23 07:49 66 94 04/17/23 07:43 68 97
--- NOTE | 2023-04-17 20:11 | Delivery Summary ---
Vaginal Delivery Summary Date of Service April 17, 2023 Vaginal Delivery Summary Patient was found to be fully dilated and the head was at +2 station and she desired to push. She pushed for about 2 and half hours and getting exhausted. Head was at +3 station with the caput visible from introitus. The patient also for assistance. After discussion either vacuum extraction versus going to his we mutually decided to try Kiwi vacuum. It was applied to vertex between fontanelles, about 1 to 2 cm anterior to small/posterior fontanelle. With the patient pushing through vacuum pressure was increased to green zone and it was pulled while directing the head. A right mediolateral episiotomy was opened to provide enough space for vacuum. It came off once due to caput and applied again, and use again with the next push. It came off and then head was much lower than before, patient pushed 1 more and delivered the head. There were nuchal cord around the neck x3 those were reduced on the perineum and then baby was delivered without difficulty, there was another nuchal cord around the neck x1 making total of 4. Nuchal cord loops were not tight around the neck. The baby was handed off to the mother where mouth and nose were suctioned cord was clamped times and cut. Then the baby was taken off by pediatric team with Dr. Charlton. The vagina and perineum were checked and found to have second degree mediolateral episiotomy only, no other lacerations. Rectal exam was done and noted good sphincter tone. The gloves were changes. Perineal body muscles were reinforced around the sphincter with [id number] stitches with 2-0 Vicryl. Then with another 2-0 Vicryl was used to repair vagina mucosa in continuous fashion and skin in a subcuticular fashion. The vaginal mucosa was repaired with 2/0 vicryl and skin on subcuticular fashion. The placenta was found to be in the vagina, delivered spontaneously as intact and complete. The uterus was explored and found to be empty. EBL was 200 ml. The fundus was firm The baby was a viable female infant, Apgars 3/8, the weight is 5 lb 12 oz. The mother and the baby tolerated the procedure well. No complications happened and I was present during whole procedure. The sponge instrument and needle count was correctx2.
[2023-04-17] MEDS ORDERED: MEASLES, MUMPS & RUBELLA VIRUS VACCINE (MMR) VIAL SQ ONE (21:07)
[2023-04-17] MEDS ORDERED: HYDROCORTISONE ACETATE 25 MG SUPP PR PRN (21:07)
[2023-04-17] MEDS ORDERED: DIPHTHERIA/TETANUS/PERTUSSIS Vaccine (Tdap, Age 7+yrs) 0.5mL SYR/VL IM ONE (21:07)
[2023-04-17] MEDS ORDERED: BENZOCAINE 20% SPRY 85 APPLN/85 GM CAN EXT PRN (21:07)
[2023-04-17] MEDS ORDERED: bisacodyL 10 MG SUPP PR PRN (21:07)
--- NOTE | 2023-04-17 21:23 | Obstetrical Progress Note ---
Date of Service April 17, 2023 Assessment & Plan Admission and Anticipated Discharge Date Admission Date: April 17, 2023 Subjective Patient was checked by myself at 21:00 and found to be fully dilated, head at + 2 to 3 station. She has bene pushing with each contractions FHR 130-140's, early decels with contractions Continue to monitor closely Anticipate Results & Data Vital Signs (Past 12 Hours) Vital Signs Temp Pulse Resp BP Pulse Ox 04/17/23 19:05 36.4 C L 68 18 97 04/17/23 19:05 18 04/17/23 15:20 18 04/17/23 13:15 18 04/17/23 12:15 18 04/17/23 11:15 18 04/17/23 10:15 20 04/17/23 21:19 74 98 04/17/23 21:18 74 87 L 04/17/23 21:14 77 96 04/17/23 21:13 73 145/73 H 04/17/23 21:00 18 04/17/23 21:00 36.5 C 18 04/17/23 21:10 79 92 04/17/23 21:09 76 97 04/17/23 21:04 72 99 04/17/23 21:03 77 92 04/17/23 20:59 97 04/17/23 20:59 73 04/17/23 20:59 74 126/85 04/17/23 20:58 68 125/82 04/17/23 20:54 72 97 04/17/23 20:00 18 04/17/23 20:00 18 04/17/23 20:49 73 98 04/17/23 20:44 65 97 04/17/23 20:43 70 145/79 H 04/17/23 20:39 73 96 04/17/23 20:34 74 97 04/17/23 20:29 76 98 04/17/23 20:28 71 132/72 04/17/23 20:24 82 98 04/17/23 20:19 75 95 04/17/23 20:14 97 04/17/23 20:14 76 04/17/23 20:14 74 175/92 H 04/17/23 20:09 70 98 04/17/23 20:04 77 97 04/17/23 19:59 96 04/17/23 19:59 70 04/17/23 19:59 71 171/96 H 94 04/17/23 19:54 73 98 04/17/23 19:49 68 97 04/17/23 19:05 18 04/17/23 19:05 36.4 C L 18 04/17/23 19:44 71 98 04/17/23 19:43 74 166/102 H 04/17/23 19:39 77 99 04/17/23 19:34 79 99 04/17/23 19:29 71 97 04/17/23 19:28 66 133/78 04/17/23 19:24 65 97 04/17/23 19:19 66 98 04/17/23 19:14 97 04/17/23 19:14 69 04/17/23 19:14 78 142/97 H 94 04/17/23 19:09 73 99 04/17/23 19:04 74 98 04/17/23 18:59 72 98 04/17/23 18:58 72 20 158/94 H 04/17/23 18:54 67 96 04/17/23 18:49 73 97 04/17/23 18:44 97 04/17/23 18:44 73 04/17/23 18:44 69 144/87 H 04/17/23 18:39 69 98 04/17/23 18:34 71 96 04/17/23 18:29 67 20 157/91 H 98 04/17/23 18:24 70 98 04/17/23 18:19 71 99 04/17/23 18:14 67 98 04/17/23 18:13 70 156/95 H 04/17/23 18:09 63 96 04/17/23 18:04 64 96 04/17/23 17:59 65 20 130/76 97 04/17/23 17:54 64 96 04/17/23 17:49 58 L 96 04/17/23 17:44 97 04/17/23 17:44 66 04/17/23 17:44 63 124/74 04/17/23 17:39 63 98 04/17/23 17:34 63 97 04/17/23 17:29 69 98 04/17/23 17:28 68 20 127/76 04/17/23 17:24 66 96 04/17/23 17:20 72 94 04/17/23 17:19 67 95 04/17/23 17:14 65 95 04/17/23 17:13 60 112/66 93 04/17/23 17:09 64 96 04/17/23 17:08 71 94 04/17/23 17:04 69 95 04/17/23 17:02 69 93 04/17/23 16:59 66 96 04/17/23 16:58 59 L 16 103/63 04/17/23 16:55 64 94 04/17/23 16:54 71 94 04/17/23 16:50 63 94 04/17/23 16:49 63 96 04/17/23 16:44 66 96 04/17/23 16:43 66 119/66 04/17/23 16:39 64 96 04/17/23 16:38 71 94 04/17/23 16:34 66 96 04/17/23 16:29 97 04/17/23 16:29 69 04/17/23 16:29 60 18 112/69 04/17/23 16:27 69 94 04/17/23 16:23 68 94 04/17/23 16:22 70 93 04/17/23 16:18 70 96 04/17/23 16:14 64 115/68 04/17/23 16:13 62 92 04/17/23 16:08 67 98 04/17/23 16:03 71 20 98 04/17/23 15:58 18 95 04/17/23 15:58 75 04/17/23 15:58 72 141/84 H 92 04/17/23 15:53 67 95 04/17/23 15:48 67 96 04/17/23 15:44 68 04/17/23 15:43 67 96 04/17/23 15:44 69 154/88 H 91 04/17/23 15:38 72 95 04/17/23 15:33 68 95 04/17/23 15:28 95 04/17/23 15:28 68 04/17/23 15:28 66 20 143/89 H 04/17/23 15:23 68 94 04/17/23 15:18 68 95 04/17/23 15:14 66 94 04/17/23 15:13 70 161/91 H 95 04/17/23 15:08 67 95 04/17/23 15:00 20 04/17/23 15:00 36.5 C 20 04/17/23 15:03 74 95 04/17/23 14:58 95 04/17/23 14:58 71 04/17/23 14:58 70 154/94 H 91 04/17/23 14:53 73 96 04/17/23 14:48 73 95 04/17/23 14:43 71 97 04/17/23 14:42 72 167/99 H 04/17/23 14:41 69 94 04/17/23 14:40 69 150/89 H 04/17/23 14:38 72 95 04/17/23 14:36 69 159/89 H 92 04/17/23 14:33 69 95 04/17/23 14:28 71 97 04/17/23 14:29 72 146/87 H 93 04/17/23 14:27 74 162/96 H 04/17/23 14:25 69 152/88 H 04/17/23 14:23 95 04/17/23 14:23 71 04/17/23 14:23 71 160/93 H 93 04/17/23 14:21 67 148/84 H 04/17/23 14:18 69 99 04/17/23 14:19 70 155/97 H 04/17/23 14:17 68 154/95 H 04/17/23 14:15 68 163/101 H 04/17/23 14:13 67 153/91 H 97 04/17/23 14:11 66 158/100 H 04/17/23 14:09 68 159/95 H 04/17/23 14:08 70 99 04/17/23 14:07 64 140/95 04/17/23 14:05 68 20 151/95 H 04/17/23 14:03 67 150/95 H 97 04/17/23 13:58 74 100 04/17/23 13:53 68 98 04/17/23 13:52 69 94 04/17/23 13:48 70 98 04/17/23 13:45 67 141/91 H 04/17/23 13:43 72 95 04/17/23 13:42 66 94 04/17/23 13:38 66 96 04/17/23 13:36 70 94 04/17/23 13:33 70 97 04/17/23 13:28 72 96 04/17/23 13:23 67 97 04/17/23 13:18 72 97 04/17/23 13:15 70 158/89 H 94 04/17/23 13:13 78 95 04/17/23 13:08 70 97 04/17/23 13:03 71 98 04/17/23 12:58 69 99 04/17/23 12:53 68 97 04/17/23 12:48 73 97 04/17/23 12:45 68 156/90 H 94 04/17/23 12:43 72 98 04/17/23 12:38 76 98 04/17/23 12:33 73 98 04/17/23 12:28 69 97 04/17/23 12:23 72 97 04/17/23 12:18 69 98 04/17/23 12:13 74 99 04/17/23 12:08 73 98 04/17/23 12:07 66 151/93 H 04/17/23 12:03 68 97 04/17/23 11:58 70 97 04/17/23 11:53 97 04/17/23 11:53 65 04/17/23 11:53 63 154/87 H 04/17/23 11:48 68 97 04/17/23 11:43 66 97 04/17/23 11:38 72 98 04/17/23 11:37 65 143/91 H 04/17/23 11:33 72 97 04/17/23 11:28 71 97 04/17/23 11:23 66 97 04/17/23 11:22 66 138/90 04/17/23 11:18 73 98 04/17/23 10:52 20 04/17/23 10:52 36.4 C L 20 04/17/23 11:13 70 97 04/17/23 11:08 97 04/17/23 11:08 67 04/17/23 11:08 71 164/89 H 92 04/17/23 11:03 67 96 04/17/23 10:58 64 96 04/17/23 10:53 65 96 04/17/23 10:52 66 04/17/23 10:52 71 158/85 H 91 04/17/23 10:48 66 96 04/17/23 10:43 66 97 04/17/23 10:38 73 97 04/17/23 10:37 68 20 133/86 93 04/17/23 10:33 76 97 04/17/23 10:28 73 95 04/17/23 10:29 77 94 04/17/23 10:23 75 96 04/17/23 10:22 67 137/88 93 04/17/23 10:18 77 99 04/17/23 10:13 75 97 04/17/23 10:08 71 98 04/17/23 10:07 71 148/96 H 93 04/17/23 10:03 70 97 04/17/23 09:58 72 96 04/17/23 09:53 73 97 04/17/23 09:52 70 136/91 04/17/23 09:48 69 98 04/17/23 09:43 68 97 04/17/23 09:38 70 98 04/17/23 09:37 74 142/94 H 92 04/17/23 09:33 72 98 04/17/23 09:28 71 98 04/17/23 09:23 73 97 04/17/23 09:22 70 138/87
[2023-04-17] MEDS ORDERED: MINERAL OIL 30 ML UDC ONE (21:35)
--- NOTE | 2023-04-17 23:14 | Obstetrical Progress Note ---
Date of Service April 17, 2023 Assessment & Plan Admission and Anticipated Discharge Date Admission Date: April 17, 2023 Subjective Patient has been pushing for about 2 hours. She has been comfortable, not feeling pain but some pressure with contractions VE: there is descend with each pushes, caput succedaneum more visible with pushing but bony part still in pelvis FHR 130-140's between pushes Continue to monitor closely ad pushing Results & Data Vital Signs (Past 12 Hours) Vital Signs Temp Pulse Resp BP Pulse Ox 04/17/23 19:05 36.4 C L 68 18 97 04/17/23 19:05 18 04/17/23 15:20 18 04/17/23 13:15 18 04/17/23 12:15 18 04/17/23 11:15 18 04/17/23 23:09 83 100 04/17/23 23:04 85 98 04/17/23 22:59 76 93 04/17/23 23:00 76 162/77 H 04/17/23 22:54 79 96 04/17/23 22:49 79 96 04/17/23 22:44 81 99 04/17/23 22:39 77 98 04/17/23 22:34 80 94 04/17/23 22:29 96 04/17/23 22:29 77 04/17/23 22:29 81 168/86 H 04/17/23 22:24 78 96 04/17/23 22:23 81 84 L 04/17/23 22:19 81 96 04/17/23 22:14 77 162/80 H 96 04/17/23 22:09 74 97 04/17/23 22:08 78 88 L 04/17/23 22:04 85 97 04/17/23 22:01 75 91 04/17/23 21:59 90 96 04/17/23 21:58 76 150/81 H 04/17/23 21:54 81 93 04/17/23 21:49 84 162/91 H 98 04/17/23 21:48 79 90 04/17/23 21:44 87 95 04/17/23 21:41 83 90 04/17/23 21:39 91 H 98 04/17/23 21:36 80 89 L 04/17/23 21:34 75 99 04/17/23 21:29 77 99 04/17/23 21:30 76 88 L 04/17/23 21:24 75 97 04/17/23 21:25 76 91 04/17/23 21:19 74 98 04/17/23 21:18 74 87 L 04/17/23 21:14 77 96 04/17/23 21:13 73 145/73 H 04/17/23 21:00 18 04/17/23 21:00 36.5 C 18 04/17/23 21:10 79 92 04/17/23 21:09 76 97 04/17/23 21:04 72 99 04/17/23 21:03 77 92 04/17/23 20:59 97 04/17/23 20:59 73 04/17/23 20:59 74 126/85 04/17/23 20:58 68 125/82 04/17/23 20:54 72 97 04/17/23 20:00 18 04/17/23 20:00 18 04/17/23 20:49 73 98 04/17/23 20:44 65 97 04/17/23 20:43 70 145/79 H 04/17/23 20:39 73 96 04/17/23 20:34 74 97 04/17/23 20:29 76 98 04/17/23 20:28 71 132/72 04/17/23 20:24 82 98 04/17/23 20:19 75 95 04/17/23 20:14 97 04/17/23 20:14 76 04/17/23 20:14 74 175/92 H 04/17/23 20:09 70 98 04/17/23 20:04 77 97 04/17/23 19:59 96 04/17/23 19:59 70 04/17/23 19:59 71 171/96 H 94 04/17/23 19:54 73 98 04/17/23 19:49 68 97 04/17/23 19:05 18 04/17/23 19:05 36.4 C L 18 04/17/23 19:44 71 98 04/17/23 19:43 74 166/102 H 04/17/23 19:39 77 99 04/17/23 19:34 79 99 04/17/23 19:29 71 97 04/17/23 19:28 66 133/78 04/17/23 19:24 65 97 04/17/23 19:19 66 98 04/17/23 19:14 97 04/17/23 19:14 69 04/17/23 19:14 78 142/97 H 94 04/17/23 19:09 73 99 04/17/23 19:04 74 98 04/17/23 18:59 72 98 04/17/23 18:58 72 20 158/94 H 04/17/23 18:54 67 96 04/17/23 18:49 73 97 04/17/23 18:44 97 04/17/23 18:44 73 04/17/23 18:44 69 144/87 H 04/17/23 18:39 69 98 04/17/23 18:34 71 96 04/17/23 18:29 67 20 157/91 H 98 04/17/23 18:24 70 98 04/17/23 18:19 71 99 04/17/23 18:14 67 98 04/17/23 18:13 70 156/95 H 04/17/23 18:09 63 96 04/17/23 18:04 64 96 04/17/23 17:59 65 20 130/76 97 04/17/23 17:54 64 96 04/17/23 17:49 58 L 96 04/17/23 17:44 97 04/17/23 17:44 66 04/17/23 17:44 63 124/74 04/17/23 17:39 63 98 04/17/23 17:34 63 97 04/17/23 17:29 69 98 04/17/23 17:28 68 20 127/76 04/17/23 17:24 66 96 04/17/23 17:20 72 94 04/17/23 17:19 67 95 04/17/23 17:14 65 95 04/17/23 17:13 60 112/66 93 04/17/23 17:09 64 96 04/17/23 17:08 71 94 04/17/23 17:04 69 95 04/17/23 17:02 69 93 04/17/23 16:59 66 96 04/17/23 16:58 59 L 16 103/63 04/17/23 16:55 64 94 04/17/23 16:54 71 94 04/17/23 16:50 63 94 04/17/23 16:49 63 96 04/17/23 16:44 66 96 04/17/23 16:43 66 119/66 04/17/23 16:39 64 96 04/17/23 16:38 71 94 04/17/23 16:34 66 96 04/17/23 16:29 97 04/17/23 16:29 69 04/17/23 16:29 60 18 112/69 04/17/23 16:27 69 94 04/17/23 16:23 68 94 04/17/23 16:22 70 93 04/17/23 16:18 70 96 04/17/23 16:14 64 115/68 04/17/23 16:13 62 92 04/17/23 16:08 67 98 04/17/23 16:03 71 20 98 04/17/23 15:58 18 95 04/17/23 15:58 75 04/17/23 15:58 72 141/84 H 92 04/17/23 15:53 67 95 04/17/23 15:48 67 96 04/17/23 15:44 68 04/17/23 15:43 67 96 04/17/23 15:44 69 154/88 H 91 04/17/23 15:38 72 95 04/17/23 15:33 68 95 04/17/23 15:28 95 04/17/23 15:28 68 04/17/23 15:28 66 20 143/89 H 04/17/23 15:23 68 94 04/17/23 15:18 68 95 04/17/23 15:14 66 94 04/17/23 15:13 70 161/91 H 95 04/17/23 15:08 67 95 04/17/23 15:00 20 04/17/23 15:00 36.5 C 20 04/17/23 15:03 74 95 04/17/23 14:58 95 04/17/23 14:58 71 04/17/23 14:58 70 154/94 H 91 04/17/23 14:53 73 96 04/17/23 14:48 73 95 04/17/23 14:43 71 97 04/17/23 14:42 72 167/99 H 04/17/23 14:41 69 94 04/17/23 14:40 69 150/89 H 04/17/23 14:38 72 95 04/17/23 14:36 69 159/89 H 92 04/17/23 14:33 69 95 04/17/23 14:28 71 97 04/17/23 14:29 72 146/87 H 93 04/17/23 14:27 74 162/96 H 04/17/23 14:25 69 152/88 H 04/17/23 14:23 95 04/17/23 14:23 71 04/17/23 14:23 71 160/93 H 93 04/17/23 14:21 67 148/84 H 04/17/23 14:18 69 99 04/17/23 14:19 70 155/97 H 04/17/23 14:17 68 154/95 H 04/17/23 14:15 68 163/101 H 04/17/23 14:13 67 153/91 H 97 04/17/23 14:11 66 158/100 H 04/17/23 14:09 68 159/95 H 04/17/23 14:08 70 99 04/17/23 14:07 64 140/95 04/17/23 14:05 68 20 151/95 H 04/17/23 14:03 67 150/95 H 97 04/17/23 13:58 74 100 04/17/23 13:53 68 98 04/17/23 13:52 69 94 04/17/23 13:48 70 98 04/17/23 13:45 67 141/91 H 04/17/23 13:43 72 95 04/17/23 13:42 66 94 04/17/23 13:38 66 96 04/17/23 13:36 70 94 04/17/23 13:33 70 97 04/17/23 13:28 72 96 04/17/23 13:23 67 97 04/17/23 13:18 72 97 04/17/23 13:15 70 158/89 H 94 04/17/23 13:13 78 95 04/17/23 13:08 70 97 04/17/23 13:03 71 98 04/17/23 12:58 69 99 04/17/23 12:53 68 97 04/17/23 12:48 73 97 04/17/23 12:45 68 156/90 H 94 04/17/23 12:43 72 98 04/17/23 12:38 76 98 04/17/23 12:33 73 98 04/17/23 12:28 69 97 04/17/23 12:23 72 97 04/17/23 12:18 69 98 04/17/23 12:13 74 99 04/17/23 12:08 73 98 04/17/23 12:07 66 151/93 H 04/17/23 12:03 68 97 04/17/23 11:58 70 97 04/17/23 11:53 97 04/17/23 11:53 65 04/17/23 11:53 63 154/87 H 04/17/23 11:48 68 97 04/17/23 11:43 66 97 04/17/23 11:38 72 98 04/17/23 11:37 65 143/91 H 04/17/23 11:33 72 97 04/17/23 11:28 71 97 04/17/23 11:23 66 97 04/17/23 11:22 66 138/90 04/17/23 11:18 73 98 04/17/23 11:13 70 97
[2023-04-18] MEDS: ACETAMINOPHEN 325 MG TAB PO PRN ×3 (00:58→11:49)
[2023-04-18] MEDS: IBUPROFEN 600 MG TAB PO PRN ×4 (00:59→19:21)
[2023-04-18] MEDS: LACTATED RINGER'S 1,000 ML IV PRN (01:35)
[2023-04-18] MEDS: LACTATED RINGER'S 1,000 ML IV SCH ×3 (05:37→20:59)
[2023-04-18 06:20] LABS: Hemoglobin 10.5 g/dl (12.0-16.0); Mean Corpuscular Hemoglobin 28.1 pg (25.0-34.0); Mean Corpuscular Hgb Conc 32.8 g/dL (32.0-36.0); Mean Corpuscular Volume 85.6 fL (80.0-100.0); Mean Platelet Volume 13.5 fL (9.4-12.4); Platelet Count 128 K/uL (130-400); RDW Coefficient of Variation 14.4 % (11.5-14.5); RDW Standard Deviation 45.1 fL (36.4-46.3); Red Blood Count 3.74 M/uL (4.20-5.40); White Blood Count 16.89 K/ul (4.8-10.8)
[2023-04-18 07:25] LABS: Magnesium Therapeutic L&D Only 5.7 mg/dL (4.0-8.0)
[2023-04-18 07:27] LABS: Albumin Globulin Ratio 1.1 (0.9-2); Albumin Level 2.6 gm/dl (3.4-5.0); BUN Creatinine Ratio 11.6 (10-20); Bilirubin,Total 0.3 mg/dl (0.2-1.0); Calcium 6.7 mg/dl (8.6-10.3); Creatinine Clr Calc Pharmacy 94.5 ml/min; Est GFR (African American) 101.4 ml/min; Est GFR (Non-African American) 87.5 ml/min; Globulin 2.4 gm/dl (2.5-4.0); Potassium 3.8 mmol/L (3.5-5.1)
[2023-04-18] MEDS: DOCUSATE SODIUM 100 MG CAP PO SCH ×2 (08:37→20:56)
[2023-04-18] MEDS: PRENATAL VITAMIN 1 TAB PO SCH (08:37)
[2023-04-18] MEDS: FERROUS SULFATE 325 MG TAB PO SCH (08:37)
[2023-04-18] MEDS: LABETALOL HCL 200 MG TAB PO SCH ×3 (08:38→20:56)
--- NOTE | 2023-04-18 09:39 | Obstetrical Progress Note ---
Date of Service April 18, 2023 Assessment & Plan (1) Elevated LFTs: Plan s/p Preeclampsia delivered and doing well On magnesium till21;00 today pt doing well Bp stable on labetalol continue above management plan Subjective Ambulation: ambulating normally Voiding: no voiding problems Passing Gas:: Yes Diet Tolerance:: regular diet Lochia:: Small Feeding Type:: breast feeding Review of Systems All systems reviewed & are unremarkable except as noted in HPI & below Physical Exam Constitutional WD/WN, vitals as above well developed and well nourished Eyes PERRL, conjunctivae normal, anicteric sclerae Neck trachea midline, no thyromegaly Respiratory normal respiratory effort, lungs clear to auscultation Auscultation: no crackles, no rales and no wheezes Cardiovascular RRR, no murmur, no edema Gastrointestinal (Abdomen) normal bowel sounds, soft, nontender, no hepatosplenomegaly Uterus is below umbilicus Musculoskeletal no cyanosis or clubbing, extremities motor strength 5/5 Skin no rashes, warm and dry Neurologic patellar DTR's 2+ bilat, sensation intact Psychiatric A+Ox3, euthymic affect Genitourinary normal external appearance Results & Data Vital Signs (Past 12 Hours) Vital Signs Temp Pulse Resp BP Pulse Ox 04/18/23 07:30 20 04/18/23 07:30 36.6 C 18 04/18/23 06:00 18 04/18/23 05:00 36.6 C 18 04/18/23 04:00 36.8 C 18 04/18/23 02:20 36.6 C 69 18 121/69 04/18/23 02:20 18 04/18/23 01:50 36.6 C 18 04/18/23 01:20 36.8 C 18 04/18/23 01:05 36.7 C 18 04/18/23 00:50 36.7 C 18 04/18/23 00:35 36.9 C 18 04/18/23 00:20 36.9 C 18 04/18/23 00:00 20 04/17/23 22:00 20 04/17/23 23:00 36.9 C 76 20 153/89 H 04/17/23 23:00 20 04/18/23 09:24 65 129/84 04/18/23 09:08 67 140/82 04/18/23 08:24 61 148/94 H 04/18/23 07:10 65 140/82 04/18/23 06:24 63 120/70 04/18/23 05:24 63 121/69 04/18/23 04:24 65 105/62 04/18/23 03:24 68 109/70 04/18/23 02:23 69 121/69 04/18/23 02:13 75 130/72 04/18/23 01:58 71 131/75 04/18/23 01:43 75 142/83 H 04/18/23 01:28 73 152/90 H 04/18/23 01:13 72 147/87 H 04/18/23 00:58 74 137/80 04/18/23 00:43 76 132/78 04/18/23 00:28 76 153/89 H 04/18/23 00:13 81 136/83 04/17/23 23:36 89 87 L 04/17/23 23:34 97 H 94 04/17/23 23:29 80 98 04/17/23 23:24 81 98 04/17/23 23:19 79 95 04/17/23 23:15 20 04/17/23 23:15 36.7 C 20 04/17/23 23:14 87 95 04/17/23 23:09 83 100 04/17/23 23:04 85 98 04/17/23 22:59 76 93 04/17/23 23:00 76 162/77 H 04/17/23 22:54 79 96 04/17/23 22:49 79 96 04/17/23 22:44 81 99 04/17/23 22:39 77 98 04/17/23 22:34 80 94 04/17/23 22:29 96 04/17/23 22:29 77 04/17/23 22:29 81 168/86 H 04/17/23 22:24 78 96 04/17/23 22:23 81 84 L 04/17/23 22:19 81 96 04/17/23 22:14 77 162/80 H 96 04/17/23 22:09 74 97 04/17/23 22:08 78 88 L 04/17/23 22:04 85 97 04/17/23 22:01 75 91 04/17/23 21:59 90 96 04/17/23 21:58 76 150/81 H 04/17/23 21:54 81 93 04/17/23 21:49 84 162/91 H 98 04/17/23 21:48 79 90 04/17/23 21:44 87 95 04/17/23 21:41 83 90 04/17/23 21:39 91 H 98
--- NOTE | 2023-04-18 12:30 | Anesthesia Procedure Note ---
Date of Service April 18, 2023 Anesthesia Post Epidural Note Vital Signs Vital Signs: Temp Pulse Resp BP Pulse Ox 36.6 C 71 20 141/74 H 87 L 04/18/23 07:30 04/18/23 12:24 04/18/23 11:21 04/18/23 12:24 04/17/23 23:36 Pain Intensity Bilateral Abdomen: Pain Intensity: 4 Vaginal: Pain Intensity: 0 Notes Mental Status: alert / awake / arousable Nausea / Vomiting: adequately controlled Pain: adequately controlled Airway Patency, RR, SpO2: stable & adequate BP & HR: stable & adequate Hydration State: stable & adequate Neuraxial Anesthesia: was administered and sensory block is resolving Anesthetic Complications: no major complications apparent and Pt Satisfied with anesthetic care Epidural: Removed without complications and With tip intact
[2023-04-18 19:58] LABS: Basophils # (auto) 0.02 K/uL (0.00-0.20); Basophils % (auto) 0.1 %; Eosinophils # (auto) 0.12 K/uL (0.00-0.50); Eosinophils % (auto) 0.9 %; Hematocrit (blood only) 32.8 % (37.0-47.0); Hemoglobin 10.8 g/dl (12.0-16.0); Immature Granulocytes # (auto) 0.04 K/uL (0.01-0.20); Immature Granulocytes % (auto) 0.3 %; Lymphocytes # (auto) 1.89 K/uL (1.20-3.40); Lymphocytes % (auto) 13.4 %; Mean Corpuscular Hemoglobin 28.1 pg (25.0-34.0); Mean Corpuscular Hgb Conc 32.9 g/dL (32.0-36.0); Mean Corpuscular Volume 85.4 fL (80.0-100.0); Mean Platelet Volume 13.9 fL (9.4-12.4); Monocytes % (auto) 3.6 %; Neutrophils % (auto) 81.7 %; Platelet Count 137 K/uL (130-400); RDW Coefficient of Variation 14.5 % (11.5-14.5); RDW Standard Deviation 44.3 fL (36.4-46.3); Red Blood Count 3.84 M/uL (4.20-5.40); White Blood Count 14.07 K/ul (4.8-10.8)
[2023-04-18] MEDS ORDERED: bisacodyL 5 MG TABEC PO SCH (20:00)
[2023-04-18 20:08] LABS: Albumin Level 2.8 gm/dl (3.4-5.0); BUN Creatinine Ratio 14.3 (10-20); Bilirubin,Total 0.2 mg/dl (0.2-1.0); Calcium 7.3 mg/dl (8.6-10.3); Creatinine Clr Calc Pharmacy 96.7 ml/min; Est GFR (African American) 104.4 ml/min; Globulin 2.9 gm/dl (2.5-4.0); Total Protein 5.7 gm/dl (6.0-8.3)
--- NOTE | 2023-04-19 04:06 | Obstetrical Progress Note ---
Date of Service April 19, 2023 Assessment & Plan (1) Gestational hypertension: PPD #2 Pt doing well Nml labs stable BP on labetalol d/c PM Results & Data Vital Signs (Past 12 Hours) Vital Signs Temp Pulse Pulse Resp BP BP Pulse Ox 04/19/23 00:00 36.5 C 73 18 132/83 98 04/18/23 23:45 36.8 C 18 04/18/23 22:24 16 04/18/23 21:00 18 04/18/23 20:24 16 04/18/23 19:24 36.7 C 16 04/18/23 19:24 36.7 C 18 98 04/18/23 23:26 84 97 04/18/23 23:24 81 141/76 H 04/18/23 23:21 81 97 04/18/23 23:16 85 98 04/18/23 23:11 82 97 04/18/23 23:06 83 98 04/18/23 23:01 79 98 04/18/23 22:56 84 98 04/18/23 22:51 79 97 04/18/23 22:46 79 97 04/18/23 22:41 81 98 04/18/23 22:36 81 98 04/18/23 22:31 82 97 04/18/23 22:26 77 98 04/18/23 22:24 75 130/67 04/18/23 22:21 80 97 04/18/23 22:16 80 100 04/18/23 22:11 80 98 04/18/23 22:06 80 98 04/18/23 22:01 80 98 04/18/23 21:56 78 97 04/18/23 21:51 76 98 04/18/23 21:46 73 97 04/18/23 21:41 74 97 04/18/23 21:36 73 97 04/18/23 21:31 72 97 04/18/23 21:26 75 98 04/18/23 21:24 71 135/71 04/18/23 21:21 75 98 04/18/23 21:16 71 99 04/18/23 20:24 77 124/74 04/18/23 19:24 79 145/88 H 04/18/23 18:24 77 117/68 04/18/23 17:24 70 124/68 04/18/23 16:24 71 158/75 H O2 Del Method 04/19/23 00:00 Room Air 04/18/23 23:45 04/18/23 22:24 04/18/23 21:00 04/18/23 20:24 04/18/23 19:24 04/18/23 19:24 Room Air 04/18/23 23:26 04/18/23 23:24 04/18/23 23:21 04/18/23 23:16 04/18/23 23:11 04/18/23 23:06 04/18/23 23:01 04/18/23 22:56 04/18/23 22:51 04/18/23 22:46 04/18/23 22:41 04/18/23 22:36 04/18/23 22:31 04/18/23 22:26 04/18/23 22:24 04/18/23 22:21 04/18/23 22:16 04/18/23 22:11 04/18/23 22:06 04/18/23 22:01 04/18/23 21:56 04/18/23 21:51 04/18/23 21:46 04/18/23 21:41 04/18/23 21:36 04/18/23 21:31 04/18/23 21:26 04/18/23 21:24 04/18/23 21:21 04/18/23 21:16 04/18/23 20:24 04/18/23 19:24 04/18/23 18:24 04/18/23 17:24 04/18/23 16:24
[2023-04-19 06:39] LABS: Hematocrit (blood only) 31.6 % (37.0-47.0); Hemoglobin 10.4 g/dl (12.0-16.0)
[2023-04-19] MEDS: FERROUS SULFATE 325 MG TAB PO SCH (07:40)
[2023-04-19] MEDS: PRENATAL VITAMIN 1 TAB PO SCH (07:40)
[2023-04-19] MEDS: DOCUSATE SODIUM 100 MG CAP PO SCH ×2 (07:40→20:40)
[2023-04-19] MEDS: IBUPROFEN 600 MG TAB PO PRN ×3 (07:40→20:40)
[2023-04-19] MEDS: ACETAMINOPHEN 325 MG TAB PO PRN (07:45)
[2023-04-19] MEDS: LABETALOL HCL 200 MG TAB PO SCH ×3 (08:49→20:57)
--- NOTE | 2023-04-19 10:13 | Obstetrical Progress Note ---
Date of Service April 19, 2023 Assessment & Plan Admission and Anticipated Discharge Date Admission Date: April 17, 2023 Subjective She feels much better, no complaints. Ambulating without dizziness Voiding without difficulty Tolerating regular diet with out N&V Bleeding is minimal No fever/ chills/ CP/ SOB/ N&V/ Leg pain Breast and bottle feeding without problems Vital Signs Temp Pulse Pulse Resp BP BP Pulse Ox 04/19/23 07:30 36.7 C 81 18 138/89 98 04/19/23 03:00 36.4 C L 82 18 147/85 H 98 04/19/23 00:00 36.5 C 73 18 132/83 98 04/18/23 23:45 36.8 C 18 04/18/23 22:24 16 04/18/23 23:26 84 97 04/18/23 23:24 81 141/76 H 04/18/23 23:21 81 97 04/18/23 23:16 85 98 04/18/23 23:11 82 97 04/18/23 23:06 83 98 04/18/23 23:01 79 98 04/18/23 22:56 84 98 04/18/23 22:51 79 97 04/18/23 22:46 79 97 04/18/23 22:41 81 98 04/18/23 22:36 81 98 04/18/23 22:31 82 97 04/18/23 22:26 77 98 04/18/23 22:24 75 130/67 04/18/23 22:21 80 97 04/18/23 22:16 80 100 O2 Del Method 04/19/23 07:30 Room Air 04/19/23 03:00 Room Air 04/19/23 00:00 Room Air 04/18/23 23:45 04/18/23 22:24 04/18/23 23:26 04/18/23 23:24 04/18/23 23:21 04/18/23 23:16 04/18/23 23:11 04/18/23 23:06 04/18/23 23:01 04/18/23 22:56 04/18/23 22:51 04/18/23 22:46 04/18/23 22:41 04/18/23 22:36 04/18/23 22:31 04/18/23 22:26 04/18/23 22:24 04/18/23 22:21 04/18/23 22:16 PE: General: Alert, orientedx3, NAD Abd: soft, NT, fundus firm, below Umbilicus Perineum intact, Lochia rubra minimal Ext; NT, no edema AP: 37 yo s/p / Vacuum assisted after IOL for preeclampsia with severe features, ppd# 2 VSS Afebrile doing well On Labetalol Continue routine care Baby is having phototherapy will b here for another day All questions were answered D/C home tomorrow with baby Results & Data Vital Signs (Past 12 Hours) Vital Signs Temp Pulse Pulse Resp BP BP Pulse Ox 04/19/23 07:30 36.7 C 81 18 138/89 98 04/19/23 03:00 36.4 C L 82 18 147/85 H 98 04/19/23 00:00 36.5 C 73 18 132/83 98 04/18/23 23:45 36.8 C 18 04/18/23 22:24 16 04/18/23 23:26 84 97 04/18/23 23:24 81 141/76 H 04/18/23 23:21 81 97 04/18/23 23:16 85 98 04/18/23 23:11 82 97 04/18/23 23:06 83 98 04/18/23 23:01 79 98 04/18/23 22:56 84 98 04/18/23 22:51 79 97 04/18/23 22:46 79 97 04/18/23 22:41 81 98 04/18/23 22:36 81 98 04/18/23 22:31 82 97 04/18/23 22:26 77 98 04/18/23 22:24 75 130/67 04/18/23 22:21 80 97 04/18/23 22:16 80 100 04/18/23 22:11 80 98 O2 Del Method 04/19/23 07:30 Room Air 04/19/23 03:00 Room Air 04/19/23 00:00 Room Air 04/18/23 23:45 04/18/23 22:24 04/18/23 23:26 04/18/23 23:24 04/18/23 23:21 04/18/23 23:16 04/18/23 23:11 04/18/23 23:06 04/18/23 23:01 04/18/23 22:56 04/18/23 22:51 04/18/23 22:46 04/18/23 22:41 04/18/23 22:36 04/18/23 22:31 04/18/23 22:26 04/18/23 22:24 04/18/23 22:21 04/18/23 22:16 04/18/23 22:11
[2023-04-19 21:23] VITALS: O2SAT 99
[2023-04-20] MEDS: PRENATAL VITAMIN 1 TAB PO SCH (08:29)
[2023-04-20] MEDS: LABETALOL HCL 200 MG TAB PO SCH ×2 (08:29→14:51)
[2023-04-20] MEDS: DOCUSATE SODIUM 100 MG CAP PO SCH (08:30)
[2023-04-20] MEDS: IBUPROFEN 600 MG TAB PO PRN ×2 (08:30→16:31)
[2023-04-20] MEDS: FERROUS SULFATE 325 MG TAB PO SCH (08:30)
[2023-04-20 09:16] VITALS: RESP 18
--- NOTE | 2023-04-20 10:33 | Obstetrical Progress Note ---
Date of Service April 20, 2023 Assessment & Plan (1) Gestational diabetes mellitus (GDM): PPD #3 s/p Gestational HTN zpt doing well on Labetalol D/c home to nesting Results & Data Vital Signs (Past 12 Hours) Vital Signs Temp Pulse Pulse Resp BP Pulse Ox O2 Del Method 04/20/23 08:15 36.7 C 72 18 154/91 H 99 Room Air 04/20/23 03:49 63 156/94 H 04/19/23 23:30 36.6 C 75 16 164/94 H Room Air
--- NOTE | 2023-04-20 10:56 | Discharge Summary ---
Date of Service April 20, 2023 Admission HPI Per Admitting Provider Patient is a 37-year-old at 37 weeks of gestation who was originally scheduled for induction of labor on April 28 for gestational hypertension. Her blood work and urine PC ratio were normal yesterday in the office. She started to have neck pain radiating to her ears and temples tonight. She initially thought it was tension headache that she had before but it got worse. She took 1000 mg of Tylenol at 9 PM and it did not help. She also had blurry vision earlier and it is better now. She denies numbness or tingling, weakness, abdominal, epigastric or right upper quadrant pain, nausea vomiting, contractions, leakage of fluid, vaginal bleeding. She reports good movements. Her has been complicated by, 1. Gestational hypertension without proteinuria, on labetalol 100 mg twice daily, 2. Gestational diabetes, 3. Advanced maternal age, Specialty Data Pediatrics see Ped Chart Discharge Instructions pt was placed on Magnesium sulphate and her BP stabilized on labetalol 200mg twice daily. Pt is discharges home in stable condition. Dis charge instructions including medications,diet, activity and follow up appointments are reviewed with pt.
[2023-04-20] MEDS: ACETAMINOPHEN 325 MG TAB PO PRN (16:31)
[2023-04-20 18:01] VITALS: BP 143/89; TEMP 97.7
[2023-04-20 18:09] VITALS: PULSE 63
--- NOTE | 2023-04-23 15:47 | Obstetrical Progress Note ---
Date of Service April 23, 2023 Assessment & Plan Admission and Anticipated Discharge Date Admission Date: April 17, 2023 Subjective I called the patient to check how she has been doing. SHe state she has been doing well, no complaints Baby has been doing well too, bottle feeeding with pumped breastmilk and formula, her check up was normal. SWelling on her head is much smaller, almost gone. MOm is on LAbetalol 200 mg tid, no symptoms SHe has telemedicine visit on Recommended in person visit with blood pressure check I will call office Tuesday morning and arrange that for her All questions were answered.
== END 2023-04-20 19:35 | disposition home or self-care (01) | DRG 807 ==
LOC: OPB 22:58 → 4S1 23:00 → 4E2 04-19 00:10